=== PATIENT | female | born 1955 | race Caucasian/White ===

== ENCOUNTER → 2017-08-18 | Outpatient (CLI) | payer OTHER ==
[~2017-08-18] MED LIST: ACID REDUCER 1150 MG PO; ALBU90OI INH; ALLO100 PO; ASPI325; BENZ100A PO; CHOL10002 PO; CODGUAEL PO; CRUTCH USE; CYCL10 PO; Ceftin500 MG PO; Crutch1 EACH MISC; DIAZ2 PO; DOXY100 PO; GABA300 PO; HYDACE10B PO; HYDACE5 PO; HYDMOR2 PO; Ibuprofen Ib200 MG PO; LEVO750 PO; LEVSOD50 PO; LIDO700A20 TOP; LORA1 PO; MECL25 PO; METCAR500 PO; Miralax17 GM PO; NAPR500 PO; NAPR500EC PO; NAPR550 PO; Norco 5-325 Ta1 EACH PO; ONDA4ODT MM; ONDA8 PO; OXYACE5T PO; Omeprazole20 M1 PO; PENVK500 PO; PRAV20 PO; PRED20 PO; PROM25 PO; PROM25S PR; Percocet 5-3251 EACH PO; Prednisone20 MG PO; RANI150 PO; RXOXYACE PO; RXPENVK250 PO; TRAZ100 PO; ZOLP10 PO; Zofran Odt4 MG SL; Zofran4 MG PO
[2017-08-20 12:54] LABS: HPV Genotype 16 Not Detected (NOTDET); HPV Genotype 18 Not Detected (NOTDET)
[2017-08-31 09:15] LABS: HPV High Risk Other Not Detected (NOTDET)
== END ==
LOC: LAB 17:58
PROVIDERS: Nurse Practitioner Family
DX: Z12.4 Encounter for screening for malignant neoplasm of cervix (principal)
CPT/HCPCS: 87624; G0145

== ENCOUNTER 2017-11-10 11:12 | Emergency (ER) | payer OTHER ==
[~2017-11-10] VITALS: Ht 154.9 cm; Wt 69.0 kg
[~2017-11-10 11:12] MED LIST changes: -ALLO100 PO; -CHOL10002 PO; -CYCL10 PO; -Crutch1 EACH MISC; -GABA300 PO; -LEVO750 PO; -LEVSOD50 PO; -LIDO700A20 TOP; -ONDA4ODT MM; -Omeprazole20 M1 PO; -PRAV20 PO
[2017-11-10] MEDS ORDERED: Crutch1 EACH MISC (12:43)
[2017-11-10] MEDS ORDERED: Percocet 5-3251 EACH PO (12:43)
[2017-11-10] MEDS ORDERED: ONDA4ODT MM (12:43)
== END 2017-11-10 13:00 | disposition home or self-care (01) ==
LOC: ER 11:12
DX: S92.355A Nondisplaced fracture of fifth metatarsal bone, left foot, initial encounter for closed fracture (principal); X50.9XXA Other and unspecified overexertion or strenuous movements or postures, initial encounter; Z88.0 Allergy status to penicillin; Z88.5 Allergy status to narcotic agent; Z79.899 Other long term (current) drug therapy; F17.210 Nicotine dependence, cigarettes, uncomplicated
CPT/HCPCS: 29515; 73610; 73630; 99283

== ENCOUNTER 2018-03-01 14:35 | Emergency (ER) | payer OTHER ==
[~2018-03-01] VITALS: Ht 154.9 cm; Wt 70.3 kg
[~2018-03-01 14:35] MED LIST changes: +Crutch1 EACH MISC; +ONDA4ODT MM
[2018-03-01] MEDS ORDERED: NAPR500 PO (15:10)
[2018-03-01] MEDS ORDERED: GABA300 PO (15:10)
[2018-03-01] MEDS ORDERED: ALLO100 PO (15:11)
[2018-03-01] MEDS ORDERED: PRAV20 PO (15:11)
[2018-03-01] MEDS ORDERED: CHOL10002 PO (15:11)
[2018-03-01] MEDS ORDERED: LEVSOD50 PO (15:13)
[2018-03-01] MEDS ORDERED: CYCL10 PO (15:14)
[2018-03-01] MEDS ORDERED: Omeprazole20 M1 PO (15:14)
[2018-03-01] MEDS ORDERED: LIDO700A20 TOP (15:20)
== END 2018-03-01 15:45 | disposition home or self-care (01) ==
LOC: ER 14:35
DX: M54.2 Cervicalgia (principal); F17.200 Nicotine dependence, unspecified, uncomplicated; Z88.0 Allergy status to penicillin; Z88.5 Allergy status to narcotic agent; Z79.899 Other long term (current) drug therapy; Z79.51 Long term (current) use of inhaled steroids
CPT/HCPCS: 99283

== ENCOUNTER 2018-11-15 07:17 | Emergency (ER) | payer OTHER, MEDICARE ==
[~2018-11-15] VITALS: Ht 152.4 cm; Wt 78.0 kg
[~2018-11-15 07:17] MED LIST changes: +ALLO100 PO; +CHOL10002 PO; +CYCL10 PO; +GABA300 PO; +LEVO750 PO; +LEVSOD50 PO; +LIDO700A20 TOP; +Omeprazole20 M1 PO; +PRAV20 PO
[2018-11-15] MEDS ORDERED: CYCL10 PO (09:54)
[2018-11-15] MEDS ORDERED: Percocet 5-3251 EACH PO (09:54)
== END 2018-11-15 10:22 | disposition home or self-care (01) ==
LOC: ER 07:17
DX: M54.5 Low back pain (principal); Z88.0 Allergy status to penicillin; Z88.5 Allergy status to narcotic agent; Z79.899 Other long term (current) drug therapy; F17.200 Nicotine dependence, unspecified, uncomplicated
CPT/HCPCS: 72100; 99283-25; A9270-GY

== ENCOUNTER 2018-11-27 01:19 | Emergency (ER) | payer OTHER, MEDICARE ==
[~2018-11-27] VITALS: Ht 152.4 cm; Wt 78.0 kg
== END 2018-11-27 04:52 | disposition home or self-care (01) ==
LOC: ER 01:19
DX: S32.029D Unspecified fracture of second lumbar vertebra, subsequent encounter for fracture with routine healing (principal); W19.XXXD Unspecified fall, subsequent encounter; Z88.0 Allergy status to penicillin; Z88.5 Allergy status to narcotic agent; Z79.899 Other long term (current) drug therapy; F17.200 Nicotine dependence, unspecified, uncomplicated
CPT/HCPCS: 99283; A9270

== ENCOUNTER 2019-06-21 21:36 | Emergency (ER) | payer MEDICARE, OTHER ==
[~2019-06-21] VITALS: Ht 154.9 cm; Wt 78.9 kg
[2019-06-21] MEDS ORDERED: Zithromax250 MG PO (22:23)
[2019-06-21] MEDS ORDERED: Flonase 0.05% N16 GM (22:23)
== END 2019-06-21 22:51 | disposition home or self-care (01) ==
LOC: ER 21:36
DX: G44.209 Tension-type headache, unspecified, not intractable (principal); J32.9 Chronic sinusitis, unspecified; Z88.0 Allergy status to penicillin; Z88.5 Allergy status to narcotic agent; Z79.899 Other long term (current) drug therapy; Z79.51 Long term (current) use of inhaled steroids; Z87.891 Personal history of nicotine dependence
CPT/HCPCS: 96372; 99283-25; J1885; Q0164

== ENCOUNTER 2019-07-06 10:32 | Emergency (ER) | payer MEDICARE, OTHER ==
[~2019-07-06] VITALS: Ht 154.9 cm; Wt 80.7 kg
[~2019-07-06 10:32] MED LIST changes: +Flonase 0.05% N16 GM; +Zithromax250 MG PO
[2019-07-06 11:38] LABS: BASOPHILS ABSOLUTE AUTO 0.06 K/mm3 (0.00-0.23); BASOPHILS PERCENT AUTO 1 % (0-2); EOSINOPHILS ABSOLUTE AUTO 0.15 K/mm3 (0.00-0.68); EOSINOPHILS PERCENT AUTO 2 % (0-6); Hematocrit 43.8 % (33.0-51.0); Hemoglobin 14.5 g/dL (11.5-16.0); IMMATURE GRAN ABSOLUTE AUTO 0.06 K/mm3 (0.00-0.10); IMMATURE GRAN PERCENT AUTO 1 % (0-1); LYMPHOCYTES ABSOLUTE AUTO 2.11 K/mm3 (0.84-5.20); LYMPHOCYTES PERCENT AUTO 24 % (21-46); MONOCYTES ABSOLUTE AUTO 0.73 K/mm3 (0.16-1.47); MONOCYTES PERCENT AUTO 8 % (4-13); Mean Corpuscular HGB 28.1 pg (26.0-34.0); Mean Corpuscular HGB Conc 33.1 g/dL (31.5-36.5); Mean Corpuscular Volume 85 fL (80-100); Mean Platelet Volume 9.3 fL (9.1-12.4); NEUTROPHILS ABSOLUTE AUTO 5.66 K/mm3 (1.96-9.15); NEUTROPHILS PERCENT AUTO 65 % (41-73); Platelet Count 255 K/mm3 (150-400); RDW Coefficient Variation 13.5 % (11.7-14.2); RDW Standard Deviation 42.2 fL (35.1-46.3); Red Blood Cell Count 5.16 M/mm3 (3.80-5.20); White Blood Cell Count 8.77 K/mm3 (4.00-11.30)
[2019-07-06 11:59] LABS: Alanine Aminotransfer (ALT/SGP 61 U/L (12-78); Albumin, Blood 3.5 g/dL (3.4-5.0); Albumin/Globulin Ratio 0.9 (0.8-1.8); Anion Gap 7 mmol/L (6-16); Aspartate Aminotrans (AST/SGOT 58 U/L (12-37); Bilirubin, Total 0.4 mg/dL (0.1-1.0); Blood Urea Nitrogen 10 mg/dL (8-24); Bun/Creatinine Ratio 17.9 (12.0-20.0); CO2, Blood 28 mmol/L (21-32); Calcium, Blood 8.6 mg/dL (8.5-10.1); Chloride, Blood 103 mmol/L (98-108); Creatinine, Blood 0.56 mg/dL (0.40-1.00); Globulin, Blood 4.1 g/dL (2.2-4.0); Glomerular Filtration Rate >60 (60-); Glucose, Blood 107 mg/dL (70-99); Potassium, Blood 3.3 mmol/L (3.5-5.5); Sodium, Blood 138 mmol/L (136-145); Total Protein, Blood 7.6 g/dL (6.4-8.2)
[2019-07-06 12:01] LABS: Alk Phos 142 U/L (50-136); Troponin I <0.015 ng/mL (0.000-0.040)
[2019-07-06] MEDS ORDERED: Zithromax250 MG PO (13:35)
[2019-07-06] MEDS ORDERED: BENZ100A PO (13:35)
[2019-07-06] MEDS ORDERED: Prednisone20 MG PO (13:35)
[2019-07-06] MEDS ORDERED: ALBU90OI INH (13:35)
== END 2019-07-06 14:13 | disposition home or self-care (01) ==
LOC: ER 10:32
PROVIDERS: Emergency Medicine
DX: J40 Bronchitis, not specified as acute or chronic (principal); Z88.0 Allergy status to penicillin; Z88.5 Allergy status to narcotic agent; Z79.899 Other long term (current) drug therapy; M54.9 Dorsalgia, unspecified; G89.29 Other chronic pain; Z87.891 Personal history of nicotine dependence
CPT/HCPCS: 36415; 71046; 80053; 84484; 85025; 93005; 93010; 99284-25; J7512

== ENCOUNTER 2020-01-01 18:24 | Observation (INO) | payer MEDICARE, OTHER ==
[~2020-01-01] VITALS: Ht 157.5 cm; Wt 81.4 kg
[2020-01-01] MEDS ORDERED: EUTHYROX25 MC1 PO (18:46)
[2020-01-01] MEDS ORDERED: NEURONTIN300 MG PO (18:46)
[2020-01-01] MEDS ORDERED: HYDHCL25 PO (18:47)
[2020-01-01] MEDS ORDERED: CYCL10 PO (18:49)
[2020-01-01 18:56] LABS: BASOPHILS ABSOLUTE AUTO 0.13 K/mm3 (0.00-0.23); BASOPHILS PERCENT AUTO 1 % (0-2); EOSINOPHILS PERCENT AUTO 2 % (0-6); Hematocrit 38.8 % (33.0-51.0); Hemoglobin 12.7 g/dL (11.5-16.0); IMMATURE GRAN ABSOLUTE AUTO 0.09 K/mm3 (0.00-0.10); IMMATURE GRAN PERCENT AUTO 1 % (0-1); LYMPHOCYTES PERCENT AUTO 27 % (21-46); MONOCYTES ABSOLUTE AUTO 0.79 K/mm3 (0.16-1.47); MONOCYTES PERCENT AUTO 6 % (4-13); Mean Corpuscular HGB 28.6 pg (26.0-34.0); Mean Corpuscular HGB Conc 32.7 g/dL (31.5-36.5); Mean Corpuscular Volume 87 fL (80-100); Mean Platelet Volume 9.7 fL (9.1-12.4); NEUTROPHILS ABSOLUTE AUTO 9.15 K/mm3 (1.96-9.15); NEUTROPHILS PERCENT AUTO 64 % (41-73); Platelet Count 257 K/mm3 (150-400); RDW Coefficient Variation 14.5 % (11.7-14.2); Red Blood Cell Count 4.44 M/mm3 (3.80-5.20); White Blood Cell Count 14.26 K/mm3 (4.00-11.30)
[2020-01-01 19:07] LABS: Alanine Aminotransfer (ALT/SGP 46 U/L (12-78); Albumin, Blood 3.3 g/dL (3.4-5.0); Albumin/Globulin Ratio 0.8 (0.8-1.8); Alk Phos 132 U/L (50-136); Anion Gap 9 mmol/L (6-16); Aspartate Aminotrans (AST/SGOT 34 U/L (12-37); Bilirubin, Total 0.4 mg/dL (0.1-1.0); Blood Urea Nitrogen 10 mg/dL (8-24); Bun/Creatinine Ratio 18.5 (12.0-20.0); CO2, Blood 22 mmol/L (21-32); Calcium, Blood 8.8 mg/dL (8.5-10.1); Chloride, Blood 108 mmol/L (98-108); Creatinine, Blood 0.54 mg/dL (0.40-1.00); Ethanol (Alcohol), Blood, Med <3 mg/dL; Globulin, Blood 3.9 g/dL (2.2-4.0); Glomerular Filtration Rate >60 (60-); Glucose, Blood 171 mg/dL (70-99); Potassium, Blood 3.4 mmol/L (3.5-5.5); Salicylate <1.7 mg/dL (2.8-20.0); Sodium, Blood 139 mmol/L (136-145); Total Protein, Blood 7.2 g/dL (6.4-8.2)
[2020-01-01 19:19] LABS: Acetaminophen, Random <2.0 ug/mL (10.0-30.0)
[2020-01-01 21:07] LABS: Source, Urine Catheter
[2020-01-01 21:11] LABS: Appearance, Urine Hazy (Clear); Bilirubin, Urine Neg (Neg); Blood, Urine 1+ (Neg); Color, Urine Amber (P-Yellow); Glucose Qualitative, Urine Neg (Neg); Ketones, Urine Neg (Neg); Leukocyte Esterase, Urine 2+ (Neg); Nitrite, Urine Pos (Neg); Protein, Urine Neg (Neg); Specific Gravity, Urine 1.025 (1.003-1.022); Urobilinogen, Urine 1+ (Normal)
[2020-01-01 21:21] LABS: Bacteria Many /hpf; Red Blood Cells, Urine 0-2 /hpf (0-2); Squamous Epithelial Cells Few /hpf (Few)
[2020-01-01 21:22] LABS: U Amphetamine Screen DETECTED; U Barbituate Screen Not Detected; U Benzodiazapine Screen DETECTED; U Buprenorphine Screen Not Detected; U Cannabinoids Screen Not Detected; U Cocaine Screen Not Detected; U Methadone Screen Not Detected; U Methamphetamine Screen DETECTED; U Opiates Screen Not Detected; U Oxycodone Screen Not Detected; U Phencyclidine Screen Not Detected; U Propoxyphene Screen Not Detected
--- NOTE | 2020-01-01 23:03 | NUR ---
PT TO ICU [facility] WITH ED RN AND TECH @ 3196, PT ALERT AND ORIENTED BUT WITH SLURRED SPEECH AND FLIGHT OF IDEAS AT TIMES. VSS, PT STANDS UP INDEPENDENTLY BUT IS SOMEWHAT UNSTEADY ON HER FEET AND REPORTS PAIN TO HER LOWER BACK WHICH IS CHRONIC FOR HER. O2 SATURATIONS> 95% ON RA, MONITOR SHOWS SINUS RHYTHM WITH HR 60'S-70'S, FOLLOW UP EKG ORDERED FOR 0030 PER RECOMMENDATION FROM POISON CONTROL. PT IS FIDGETY IN BED BUT FOLLOWS DIRECTIONS, PT IS COOPERATIVE WITH NURSING STAFF. INFORMED PT OF MONITORING VIA CAMERA IN ROOM, PT VERBALIZES UNDERSTANDING OF NEED R/T SAFETY. PT TEARFUL AT TIMES, REPORTS HER MOTHER IN OUR FACILITY IN ICU 3 APPROX 7 YEARS AGO. PT REPORTS NOT HAVING FAMILY IN THE AREA BUT A BROTHER WILL BE MOVING BACK TO [place] FROM [place] SOON, STS FAMILY WILL NOT VISIT HER OFTEN BECAUSE THEY DO NOT LIKE HER BOYFRIEND BECAUSE HE IS "DIFFERENT". PT UNABLE TO REPORT ALL MEDICATIONS THAT SHE TOOK THIS EVENING, BUT STS SHE TOOK AT LEAST 4 VALIUM. PT LOOKS FORWARD TO SPEAKING WITH PSYCHIATRIST TOMORROW. PT WITH GOOD APPETITE, SWALLOWS PILLS WHOLE WITH WATER, CALL LIGHT WITHIN REACH, VERIFIED VIDEO MONITORING WITH [employer] TECH.
--- NOTE | 2020-01-02 00:23 | NUR ---
MIDSHIFT ASSESSMENT PT REPORTS FEELING NAUSEOUS, EMESIS BAG AND SALTINE CRACKERS PROVIDED, NO VOMITING AT THIS TIME. PT REPORTS DIFFICULTY FALLING ASLEEP, ASSISTED WITH TURNING ON TELEVISION, EKG COMPLETED AND PT CURRENTLY SLEEPING.
--- NOTE | 2020-01-02 01:56 | NUR ---
POISON CONTROL SPOKE WITH RN [employer] SPECIALTY SERVICES MANAGER FROM POISON CONTROL, UPDATED ON PTS STATUS, VSS, REPEAT EKG, AND TOX SCREEN RESULTS. NO NEW RECOMMENDATIONS AT THIS TIME, POISON CONTROL REMAINS AVAILABLE FOR CONSULT IF DESIRED BY PROVIDER.
[2020-01-02 03:44] LABS: BASOPHILS ABSOLUTE AUTO 0.08 K/mm3 (0.00-0.23); BASOPHILS PERCENT AUTO 1 % (0-2); EOSINOPHILS ABSOLUTE AUTO 0.29 K/mm3 (0.00-0.68); EOSINOPHILS PERCENT AUTO 3 % (0-6); Hemoglobin 12.5 g/dL (11.5-16.0); IMMATURE GRAN ABSOLUTE AUTO 0.05 K/mm3 (0.00-0.10); IMMATURE GRAN PERCENT AUTO 1 % (0-1); LYMPHOCYTES ABSOLUTE AUTO 3.57 K/mm3 (0.84-5.20); LYMPHOCYTES PERCENT AUTO 35 % (21-46); MONOCYTES PERCENT AUTO 6 % (4-13); Mean Corpuscular HGB 28.2 pg (26.0-34.0); Mean Corpuscular HGB Conc 32.1 g/dL (31.5-36.5); Mean Corpuscular Volume 88 fL (80-100); Mean Platelet Volume 9.7 fL (9.1-12.4); NEUTROPHILS ABSOLUTE AUTO 5.66 K/mm3 (1.96-9.15); NEUTROPHILS PERCENT AUTO 55 % (41-73); Platelet Count 220 K/mm3 (150-400); RDW Coefficient Variation 14.5 % (11.7-14.2); RDW Standard Deviation 46.8 fL (35.1-46.3); Red Blood Cell Count 4.43 M/mm3 (3.80-5.20); White Blood Cell Count 10.25 K/mm3 (4.00-11.30)
[2020-01-02 04:13] LABS: Alanine Aminotransfer (ALT/SGP 41 U/L (12-78); Albumin, Blood 3.1 g/dL (3.4-5.0); Albumin/Globulin Ratio 0.9 (0.8-1.8); Alk Phos 123 U/L (50-136); Anion Gap 4 mmol/L (6-16); Aspartate Aminotrans (AST/SGOT 27 U/L (12-37); Bilirubin, Total 0.2 mg/dL (0.1-1.0); Blood Urea Nitrogen 12 mg/dL (8-24); CO2, Blood 30 mmol/L (21-32); Calcium, Blood 8.9 mg/dL (8.5-10.1); Chloride, Blood 108 mmol/L (98-108); Creatinine, Blood 0.63 mg/dL (0.40-1.00); Globulin, Blood 3.4 g/dL (2.2-4.0); Glomerular Filtration Rate >60 (60-); Glucose, Blood 117 mg/dL (70-99); Potassium, Blood 3.4 mmol/L (3.5-5.5); Sodium, Blood 142 mmol/L (136-145); Total Protein, Blood 6.5 g/dL (6.4-8.2)
--- NOTE | 2020-01-02 05:39 | NUR ---
SHIFT SUMMARY NO ACUTE CHANGES THIS SHIFT, VITAL SIGNS REMAIN STABLE, REPEAT EKG COMPLETED AND IN PTS CHART. PT ABLE TO COMMUNICATE NEEDS BUT DOES NOT USE CALL LIGHT APPROPRIATELY DESPITE EDUCATION ON USE. PT REPORTING DISCOMFORT TO ARM R/T BLOOD PRESSURE CUFF, PT WITH GOOD PO INTAKE AND FREQUENT REQUESTS FOR FOOD/SNACKS, FOOD REQUEST FOR OATMEAL PLACED TO [place] PER PTS REQUEST. PT ANXIOUS TO SPEAK WITH DR VAUGHN TODAY AND REPORTS DESIRE TO GO HOME. PT ALSO REPORTS PAIN TO THE R EAR AND IS CONCERNED ABOUT AN EAR INFECTION, LET PT KNOW I WOULD PASS ON THIS INFORMATION TO HER DAY SHIFT NURSE BUT THAT SHE SHOULD ALSO NOTIFY HER PROVIDER WHEN ROUNDED ON TODAY. PT CONTINUES TO DENY SI SINCE ADMISSION. CALL LIGHT WITHIN REACH, PT CURRENTLY SITTING UP AND WATCHING TELEVISION.
--- NOTE | 2020-01-02 08:00 | NUR ---
INITIAL ASSESSMENT PATIENT LYING CALMLY IN BED. ALERT AND ORIENTED X 4, AFEBRILE. PATIENT DENIES SI. PATIENT FORGETFUL OF LIMITATIONS. DENIES PAIN. SATTING 90% AND GREATER ON RA. SR, HR IN THE 70S. BP STABLE. PATIENT HAVING DIARRHEA. PATIENT STATES THAT SHE HAS CHRONIC DIARRHEA. VOIDING DARK YELLOW URINE. GOOD APPETITE. SKIN APPEARS WNL. IV FLUSHED AND SALINE LOCKED. MIDDLEKAUFF TO SEE PATIENT TODAY. BED LOW, CALL LIGHT IN REACH. WILL CONTINUE TO MONITOR. CAMERA MONITOR ON PATIENT.
--- NOTE | 2020-01-02 10:06 | NUR ---
Safety Plan jarek. Interviewed 01-02-20 [id number] [phone]. Patient given national suicide hotline magnet and reviewed local crisis number. Patient pleasant and talkative. She was "overwhelmed" with "everything" yesterday and took amany of her medications as an OD. She rel;ays she went outside and started screaming for help, and someone "must have called an ambulance". 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 "I loved that job". She relayed she is having physical problems walking and pain on her left side. She is not able to keep her home clean like she used to. She feels ignored by her boyfriend of 30 years, and tried to talk to him about how she does not feel that he hugs her anymore. They sleep seoarately because she has restless leg syndrome and was waking him. He is self employed and "works all the time". She reports negatie self talk of "fat, ugly, unloveable". Brief intervention on positive self talk given. Patient was able to smile, stated what she did was "stupid". She spoke highly of her boyfriend, loves him, and he "has a good eart". Patient agrees to Outpatient counseling if it is arranged. She uses meth for pain.and smokes it. Reports he quit 3 days ago, as she needs surgery on her neck. Quit cigarettes 1 year ago--"so I can quit meth on my own". Children removed from her shortly after 30 years ago--daughter has found her and they are communicating. Was heavy beer drinker with her boyfriend , but reports both have decreased amount to 1-2 beers per day. Patient agrees to move meds to harder to reach area to challenge the impulsivess she demonstrated with OD. No firearms in home.
--- NOTE | 2020-01-02 11:33 | NUR ---
SPOKE TO DR. WHITMORE CONCERNING PATIENT HAVING 11 BEAT RUN OF [employer] AT 1052. ASYMPTOMATIC. INFORMED OF PATIENT'S URINE LAB RESULTS. ORDER FOR ANTIBIOTIC OBTAINED. PATIENT RETURNED BACK TO TELE STATUS.
--- NOTE | 2020-01-02 12:00 | NUR ---
PATIENT RESTING QUIETLY IN BED, EATING LUNCH. PATIENT REMAINS ALERT AND ORIENTED X 4. PATIENT CONTINUES TO DENY SI. HR 70S TO 80S. PATIENT HAD 11 BEAT RUN OF [facility] MID MORNING; ASYMPTOMATIC. NO OTHER CHANGES TO NOTE ON AT THIS TIME. WILL CONTINUE TO MONITOR.
--- NOTE | 2020-01-02 13:28 | NUR ---
DR. GALICIA IN PATIENT ROOM.
[2020-01-02] MEDS ORDERED: CEPH500 PO (14:46)
--- NOTE | 2020-01-02 16:35 | NUR ---
IV DC'D. SIGNIFICANT OTHER, DEVIN, HERE TO SHIP SURVEYOR PATIENT. DISCHARGE COMPLETE. ALL BELONGINGS TAKEN HOME WITH PATIENT.
--- NOTE | 2020-01-05 18:05 | NUR ---
ORDER RECEIVED BY DR. WHITMORE TO [place] TELE ON 01/02/20 AT 0916, TELE ON 01/02/20 AT 1131, AND KEFLEX ON 01/02/20 AT 1131- ORDERS UPDATED AT THIS TIME TO CORRECT PROVIDER.
== END 2020-01-02 16:45 | disposition home or self-care (01) ==
LOC: ER 18:24 → ICUE 18:25 → ICUW 18:25 → ICUE 21:24
PROVIDERS: Emergency Medicine; ADMIT Internal Medicine
DX: T43.212A Poisoning by selective serotonin and norepinephrine reuptake inhibitors, intentional self-harm, initial encounter (principal); F32.9 Major depressive disorder, single episode, unspecified; F15.10 Other stimulant abuse, uncomplicated; N39.0 Urinary tract infection, site not specified; E87.6 Hypokalemia; E78.5 Hyperlipidemia, unspecified; Z79.899 Other long term (current) drug therapy; Z87.891 Personal history of nicotine dependence; Z88.5 Allergy status to narcotic agent; Z88.0 Allergy status to penicillin
CPT/HCPCS: 36415; 51700; 71045; 80053; 81001; 81025; 84443; 85025; 87077; 87086; 87186; 93005; 93010; 99285-25; A9270; G0378; G0480

== ENCOUNTER 2020-02-17 21:36 | Emergency (ER) | payer MEDICARE, OTHER ==
[~2020-02-17] VITALS: Ht 152.4 cm; Wt 78.0 kg
[~2020-02-17 21:36] MED LIST changes: +CEPH500 PO; +EUTHYROX25 MC1 PO; +HYDHCL25 PO; +NEURONTIN300 MG PO
== END 2020-02-18 00:18 | disposition home or self-care (01) ==
LOC: ER 21:36
DX: G89.29 Other chronic pain (principal); M54.5 Low back pain; Z88.5 Allergy status to narcotic agent; Z88.0 Allergy status to penicillin; E78.5 Hyperlipidemia, unspecified; F32.9 Major depressive disorder, single episode, unspecified; Z79.899 Other long term (current) drug therapy
CPT/HCPCS: 96372; 99283-25; J1885

== ENCOUNTER 2020-04-16 10:12 | Inpatient (IN) | payer MEDICARE, OTHER ==
[~2020-04-16] VITALS: Ht 152.4 cm; Wt 80.6 kg
[2020-04-16 10:41] LABS: BASOPHILS ABSOLUTE AUTO 0.14 K/mm3 (0.00-0.23); BASOPHILS PERCENT AUTO 1 % (0-2); EOSINOPHILS ABSOLUTE AUTO 0.01 K/mm3 (0.00-0.68); EOSINOPHILS PERCENT AUTO 0 % (0-6); Hematocrit 42.3 % (33.0-51.0); Hemoglobin 13.9 g/dL (11.5-16.0); IMMATURE GRAN ABSOLUTE AUTO 0.22 K/mm3 (0.00-0.10); IMMATURE GRAN PERCENT AUTO 1 % (0-1); LYMPHOCYTES ABSOLUTE AUTO 2.27 K/mm3 (0.84-5.20); LYMPHOCYTES PERCENT AUTO 10 % (21-46); MONOCYTES PERCENT AUTO 4 % (4-13); Mean Corpuscular HGB 28.1 pg (26.0-34.0); Mean Corpuscular HGB Conc 32.9 g/dL (31.5-36.5); Mean Corpuscular Volume 86 fL (80-100); Mean Platelet Volume 9.6 fL (9.1-12.4); NEUTROPHILS ABSOLUTE AUTO 19.67 K/mm3 (1.96-9.15); NEUTROPHILS PERCENT AUTO 85 % (41-73); Platelet Count 258 K/mm3 (150-400); RDW Coefficient Variation 13.9 % (11.7-14.2); Red Blood Cell Count 4.94 M/mm3 (3.80-5.20); White Blood Cell Count 23.11 K/mm3 (4.00-11.30)
[2020-04-16 11:00] LABS: Alanine Aminotransfer (ALT/SGP 43 U/L (12-78); Albumin, Blood 3.3 g/dL (3.4-5.0); Albumin/Globulin Ratio 0.9 (0.8-1.8); Alk Phos 115 U/L (50-136); Anion Gap 9 mmol/L (6-16); Aspartate Aminotrans (AST/SGOT 39 U/L (12-37); Bilirubin, Total 1.1 mg/dL (0.1-1.0); Blood Urea Nitrogen 10 mg/dL (8-24); Bun/Creatinine Ratio 17.1 (12.0-20.0); CO2, Blood 28 mmol/L (21-32); Calcium, Blood 8.4 mg/dL (8.5-10.1); Chloride, Blood 97 mmol/L (98-108); Creatinine, Blood 0.59 mg/dL (0.40-1.00); Globulin, Blood 3.8 g/dL (2.2-4.0); Glomerular Filtration Rate >60 (60-); Glucose, Blood 113 mg/dL (70-99); Potassium, Blood 3.1 mmol/L (3.5-5.5); Sodium, Blood 134 mmol/L (136-145); Total Protein, Blood 7.1 g/dL (6.4-8.2); Troponin I <0.015 ng/mL (0.000-0.040)
[2020-04-16 11:35] LABS: Magnesium, Blood 1.2 mg/dL (1.6-2.4)
[2020-04-16 12:12] LABS: Source, Urine Catheter
[2020-04-16] MEDS ORDERED: NEURONTIN300 MG PO (12:20)
[2020-04-16 12:41] LABS: Appearance, Urine Hazy (Clear); Bacteria Not Seen /hpf; Bilirubin, Urine Neg (Neg); Blood, Urine 1+ (Neg); Color, Urine Yellow (P-Yellow); Glucose Qualitative, Urine Neg (Neg); Ketones, Urine Neg (Neg); Leukocyte Esterase, Urine Neg (Neg); Nitrite, Urine Neg (Neg); Protein, Urine Neg (Neg); Red Blood Cells, Urine 0-2 /hpf (0-2); Squamous Epithelial Cells Rare /hpf (Few); Urobilinogen, Urine NORM (Normal); White Blood Cells, Urine Not Seen /hpf (0-5)
[2020-04-16 14:33] LABS: U Methamphetamine Screen DETECTED; U Opiates Screen DETECTED
[2020-04-16 14:34] LABS: U Amphetamine Screen DETECTED; U Barbituate Screen Not Detected; U Benzodiazapine Screen Not Detected; U Buprenorphine Screen Not Detected; U Cannabinoids Screen Not Detected; U Cocaine Screen Not Detected; U Methadone Screen Not Detected; U Oxycodone Screen DETECTED; U Phencyclidine Screen Not Detected; U Propoxyphene Screen Not Detected
--- NOTE | 2020-04-16 19:37 | NUR ---
SHIFT SUMMARY: ASSUMED CARE OF PATIENT UPON HER ARRIVAL FROM ED AT 1701. SHE IS A&O X 3, BUT IS SEVERELY AGITATED,KEEPS CALLING OUT FOR HER "MAMA", THRASHING ABOUT IN BED. TACHYPNEIC RR 30, MANUFACTURING ADVISOR COUGH, O2 @ 2 L/MIN NC WITH SAT 90-93%. ON TELEMETRY, SINUS TACH 110'S. LACTIC ACID 3.6 IN ED, REFLEX LAB 3.9; REPORTED TO DR. FAJARDO, WHO ORDERED A CHANGE IN IVF. MEDICATED PATIENT WITH ATIVAN 1 MG IV TO CALM HER AND SLOW HER BREATHING A BIT, WHICH HELPED. DRINKS ETOH ABOUT 3X PER WEEK PER SO, LAST DRINK "A COUPLE OF DAYS AGO." NO PLAN TO TRANSFER TO HIGHER LEVEL OF CARE AT THIS TIME.
[2020-04-16] MEDS ORDERED: ALBU90OI INH (19:56)
--- NOTE | 2020-04-16 23:39 | NUR ---
2028 PT AAO X 1-2, CONFUSION, ANXIETY, ATTEMPTING TO GET OUT OF BED, CALLING "MAMMA, MAMMA". FAMILY REPORTS HX OF CHRONIC FALLS AT HOME. PT KEEPS PULLING O2 AND TELE OFF. PT UNABLE TO ANSWER COHERANTLY R/T PAIN, NAUSEA, SOB. ON 2L AT 93%, ON RA SHE IS 90%. WILL LEAVE OFF O2 FOR NOW. WILL ADMINISTER ATIVAN AND WHEN PT HAS CALMED ATTEMPT TO PLACE TELE BACK ON. WILL PLACE PT IN RASHIDA VEST FOR THEIR SAFETY R/T HIGH FALL RISK, CONFUSION, AND HX OF CHRONIC FALLS AT HOME. BED ALARM IS ALREADY ON. WILL CONT TO MONITOR PT. CALL LIGHT IS IN REACH.
--- NOTE | 2020-04-16 23:42 | NUR ---
PT CONTINUES TO PULL TELE OFF. WILL KEEP ATTEMPTING TO PLACE IT BACK ON AND KEEP IT ON. TELE MONITOR AWARE OF PT'S CONFUSION AND SITUATION. WILL CONTINUE TO MONITOR PT. RASHIDA RESTRAINT IS STILL ON. BED ALARM IS ON. CALL LIGHT IS IN REACH.
--- NOTE | 2020-04-17 05:02 | NUR ---
0200 PT LYING IN BED, EYES CLOSED, APPEARS TO BE RESTING. BREATHING IS EVEN, UNLABORED. RASHIDA IS ON. TELE IS ON. NO APPARENT SIGNS OF DISTRESS. BED ALARM IS ON. CALL LIGHT IS IN REACH.
--- NOTE | 2020-04-17 05:03 | NUR ---
0400 PT HAS PULLED HER TELE OFF A COUPLE OF MORE TIMES, HAD AN EPISODE OF INCONTINENT BM. NOW LYING IN BED, EYES CLOSED, APPEARS TO BE RESTING. BREATHING IS EVEN, UNLABORED. NO APPARENT SIGNS OF DISTRESS. CALL LIGHT IS IN REACH. BED ALARM IS ON. TELE IS BACK ON.
[2020-04-17 05:04] LABS: Hematocrit 38.3 % (33.0-51.0); Hemoglobin 12.2 g/dL (11.5-16.0); Mean Corpuscular HGB 27.5 pg (26.0-34.0); Mean Corpuscular HGB Conc 31.9 g/dL (31.5-36.5); Mean Corpuscular Volume 87 fL (80-100); Mean Platelet Volume 9.9 fL (9.1-12.4); Platelet Count 196 K/mm3 (150-400); RDW Coefficient Variation 14.5 % (11.7-14.2); RDW Standard Deviation 46.3 fL (35.1-46.3); Red Blood Cell Count 4.43 M/mm3 (3.80-5.20); White Blood Cell Count 16.79 K/mm3 (4.00-11.30)
--- NOTE | 2020-04-17 05:04 | NUR ---
PT IS AAO X 1, ON RA. TELE, PULLS TELE OFF REPEATEDLY. HAD BEEN INCONTINENT OF BM X 2. REYNAGA. TELE IS NSR. REFUSED SCD'S.
[2020-04-17 05:30] LABS: Alanine Aminotransfer (ALT/SGP 34 U/L (12-78); Albumin, Blood 2.4 g/dL (3.4-5.0); Albumin/Globulin Ratio 0.6 (0.8-1.8); Alk Phos 89 U/L (50-136); Anion Gap 7 mmol/L (6-16); Aspartate Aminotrans (AST/SGOT 31 U/L (12-37); Bilirubin, Total 0.9 mg/dL (0.1-1.0); Blood Urea Nitrogen 16 mg/dL (8-24); Bun/Creatinine Ratio 26.8 (12.0-20.0); CO2, Blood 25 mmol/L (21-32); Calcium, Blood 7.9 mg/dL (8.5-10.1); Chloride, Blood 104 mmol/L (98-108); Globulin, Blood 3.7 g/dL (2.2-4.0); Glomerular Filtration Rate >60 (60-); Glucose, Blood 90 mg/dL (70-99); Potassium, Blood 3.4 mmol/L (3.5-5.5); Sodium, Blood 136 mmol/L (136-145); Total Protein, Blood 6.1 g/dL (6.4-8.2)
[2020-04-17 05:43] LABS: BAND PERCENT MAN 29 % (0-8); BASOPHILS PERCENT MAN 0 % (0-2); EOSINOPHILS PERCENT MAN 0 % (0-6); LYMPHOCYTES ABSOLUTE MAN 0.83 K/mm3 (0.84-5.20); LYMPHOCYTES PERCENT MAN 5 % (21-46); MONOCYTES ABSOLUTE MAN 0.67 K/mm3 (0.16-1.47); MONOCYTES PERCENT MAN 4 % (4-13); NEUTROPHILS ABSOLUTE MAN 15.27 K/mm3 (1.96-9.15); SEG NEUTROPHILS PERCENT MAN 62 % (41-73); TOTAL CELLS COUNTED 100
--- NOTE | 2020-04-17 06:41 | NUR ---
PT REQUESTED AND RECIEVED SOME SIPS OF WATER, PT HAS WATER IN SIPPY CUP TO PREVENT SPILLS. NO OTHER APPARENT SIGNS OF DISTRESS. BED ALARM IS PRODUCTION CONTROL EXPERT LIGHT IS IN REACH. NO OTHER CHANGES THIS SHIFT.
--- NOTE | 2020-04-17 18:46 | NUR ---
SHIFT SUMMARY: RESTRAINTS D/C'D AT 1030. A&O X 3, MORE AWARE AND COHERENT THAN YESTERDAY. NO EVENTS ON TELEMETRY, SR 90-100'S. WEANED OFF O2, 92-94% ON RA. C/O R SIDE CHEST DISCOMFORT AND PAIN WHEN COUOGHING; MEDICATED WITH TYLENOL, BUT WANTS SOMETHING STRONGER BUT EDUCATED HER THAT BECAUSE OF HER ALTERED MENTATION ON ARRIVAL NO NARCOTICS WOULD BE ORDERED FOR HER. GOT UP TO CHAIR WITH OT, IN CHAIR FOR DINNER. AMBULATED SHORT DISTANCE WITH PHYSICAL THERAPY. GOT UPSET WHEN S.O. DIDN'T COME TO VISIT, CRYING, WHICH RESOLVED TONIGHT WHEN HE VISITED. WANTS TO GO HOME WITH HH.
--- NOTE | 2020-04-17 22:51 | NUR ---
Patient very anxious, talking loudly as if there is someone in the room. Has pulled out IV and has now excalated to yelling at her call light. Will contact MD to discuss
--- NOTE | 2020-04-18 02:47 | NUR ---
Patient continues to be very anxious and experiancing insomnia since HS. Patient has pulled out IV and removed Biox saturation monitor. She is still yelling out in room and asking where her is. She did allow this RN to attempt two IV's, but pulled her arm away each time she was poked. Wendy said "that's enough for now". Gave meds ordered by MD including PO Ativan and her 100mg dose of trazodone. Spoke with charge loader who noted that patient was 750 ml completed on his liter bag of saline, and was not scheduled for his rocephin until 1800. If patient excalates again, I will give po zyprexa
[2020-04-18 04:44] LABS: Hematocrit 36.4 % (33.0-51.0); Hemoglobin 11.7 g/dL (11.5-16.0); Mean Corpuscular HGB 27.9 pg (26.0-34.0); Mean Corpuscular HGB Conc 32.1 g/dL (31.5-36.5); Mean Corpuscular Volume 87 fL (80-100); Mean Platelet Volume 9.8 fL (9.1-12.4); Platelet Count 216 K/mm3 (150-400); RDW Coefficient Variation 14.6 % (11.7-14.2); RDW Standard Deviation 46.6 fL (35.1-46.3); White Blood Cell Count 19.13 K/mm3 (4.00-11.30)
[2020-04-18 05:14] LABS: Anion Gap 6 mmol/L (6-16); Blood Urea Nitrogen 12 mg/dL (8-24); Bun/Creatinine Ratio 24.6 (12.0-20.0); CO2, Blood 27 mmol/L (21-32); Calcium, Blood 8.6 mg/dL (8.5-10.1); Chloride, Blood 109 mmol/L (98-108); Creatinine, Blood 0.49 mg/dL (0.40-1.00); Glomerular Filtration Rate >60 (60-); Glucose, Blood 86 mg/dL (70-99); Potassium, Blood 3.1 mmol/L (3.5-5.5); Sodium, Blood 142 mmol/L (136-145)
[2020-04-18 05:18] LABS: BAND PERCENT MAN 7 % (0-8); BASOPHILS PERCENT MAN 0 % (0-2); EOSINOPHILS PERCENT MAN 0 % (0-6); LYMPHOCYTES % ATYPICAL MANUAL 1 % (0-0); LYMPHOCYTES ABSOLUTE MAN 3.06 K/mm3 (0.84-5.20); LYMPHOCYTES PERCENT MAN 15 % (21-46); MONOCYTES ABSOLUTE MAN 0.95 K/mm3 (0.16-1.47); MONOCYTES PERCENT MAN 5 % (4-13); NEUTROPHILS ABSOLUTE MAN 15.11 K/mm3 (1.96-9.15); SEG NEUTROPHILS PERCENT MAN 72 % (41-73); TOTAL CELLS COUNTED 100
--- NOTE | 2020-04-18 07:56 | NUR ---
CARE AID SUMMARY Patient awake all night calling out for her madhavibradley JR. She has refused a new IV start as well as wearing biox and nasal cannula. Tried to explain the circumstances of her pneumonia and our inability to treat it, and she was too preoccupied to receive instruction.
--- NOTE | 2020-04-18 16:37 | NUR ---
SHE HAS SLEPT MOST OF THE DAY. SHE DID EAT HER MEALS. SHE HAS A VISITOR X2 TODAY FOR SHORT VISITS. SHE DECLINED OT. HER MENTATION IS CONFUSED. HER LOC FLUCTUATES.
--- NOTE | 2020-04-18 17:04 | NUR ---
SHE GETS HER I.S. ONLY UP TO 1000. SHE JUST AMBULATED THE KURTZ WITH A WALKER AND CGA. JUHI AMATO.
--- NOTE | 2020-04-18 18:22 | NUR ---
SHE IS BACK IN BED AFTER A WALK AND SITTING IN THE CHAIR FOR DINNER. ARJUN WAS DC'D BEFORE DINNER. SHE HAS PULL UPS ON LIKE AT HOME FOR SOME MILD INCONTINENCE. SHE HAS A VISITOR. SHE IS MILDLY CONFUSED, LESS THAN LAST NIGHT OR FIRST THING THIS MORNING. NO FEVER. IV ANTIBIOTIC INFUSING.
[2020-04-19 05:37] LABS: BASOPHILS ABSOLUTE AUTO 0.09 K/mm3 (0.00-0.23); BASOPHILS PERCENT AUTO 1 % (0-2); EOSINOPHILS ABSOLUTE AUTO 0.36 K/mm3 (0.00-0.68); EOSINOPHILS PERCENT AUTO 3 % (0-6); Hematocrit 38.4 % (33.0-51.0); Hemoglobin 12.5 g/dL (11.5-16.0); IMMATURE GRAN ABSOLUTE AUTO 0.14 K/mm3 (0.00-0.10); IMMATURE GRAN PERCENT AUTO 1 % (0-1); LYMPHOCYTES ABSOLUTE AUTO 3.67 K/mm3 (0.84-5.20); LYMPHOCYTES PERCENT AUTO 25 % (21-46); MONOCYTES ABSOLUTE AUTO 0.85 K/mm3 (0.16-1.47); MONOCYTES PERCENT AUTO 6 % (4-13); Mean Corpuscular HGB Conc 32.6 g/dL (31.5-36.5); Mean Corpuscular Volume 86 fL (80-100); NEUTROPHILS ABSOLUTE AUTO 9.38 K/mm3 (1.96-9.15); NEUTROPHILS PERCENT AUTO 65 % (41-73); Platelet Count 273 K/mm3 (150-400); RDW Coefficient Variation 14.6 % (11.7-14.2); Red Blood Cell Count 4.47 M/mm3 (3.80-5.20); White Blood Cell Count 14.49 K/mm3 (4.00-11.30)
[2020-04-19 05:55] LABS: Anion Gap 7 mmol/L (6-16); Blood Urea Nitrogen 12 mg/dL (8-24); CO2, Blood 26 mmol/L (21-32); Calcium, Blood 9.5 mg/dL (8.5-10.1); Chloride, Blood 109 mmol/L (98-108); Glomerular Filtration Rate >60 (60-); Glucose, Blood 83 mg/dL (70-99); Potassium, Blood 3.1 mmol/L (3.5-5.5); Sodium, Blood 142 mmol/L (136-145)
--- NOTE | 2020-04-19 07:34 | NUR ---
INSTRUCTIONAL SUPPORT TECHNICIAN SUMMARY Patient much quieter this morning. Wendy was able to sleep for about an hour at a time without crying out for her spouse and repeating that she wanted to go home. All tele leads in place and she has been running ST 100-110 all night
[2020-04-19] MEDS ORDERED: AZIT250 PO (10:14)
[2020-04-19] MEDS ORDERED: POTA10T PO (10:16)
--- NOTE | 2020-04-19 11:40 | NUR ---
SHE DISCHARGED TO HOME AT 1130 WITH HER BOYFRIEND. SHE HAD BELONGINGS AND INSTRUCTIONS. INSTRUCTIONS GIVEN TO HER AND HER BOYFRIEND D/T HER MILD CONFUSION. SHE WAS ANXIOUS TO GO HOME. SHE KNOWS TO START THE POTASSIUM AND THE ANTIBIOTIC LATER THIS AFTERNOON.
== END 2020-04-19 11:28 | disposition home or self-care (01) | DRG 871 ==
LOC: ER 10:12 → MEDS 13:58 → ENPENDDIS 04-19 09:36 → MEDS 04-19 11:28
PROVIDERS: Emergency Medicine; Nurse Practitioner Acute Care; ADMIT Internal Medicine
DX: A41.9 Sepsis, unspecified organism (principal); G92 Toxic encephalopathy; J18.9 Pneumonia, unspecified organism; E87.1 Hypo-osmolality and hyponatremia; F33.9 Major depressive disorder, recurrent, unspecified; E03.9 Hypothyroidism, unspecified; E78.5 Hyperlipidemia, unspecified; E83.42 Hypomagnesemia; E87.6 Hypokalemia; F10.20 Alcohol dependence, uncomplicated; F15.10 Other stimulant abuse, uncomplicated; K21.9 Gastro-esophageal reflux disease without esophagitis; Z91.5 Personal history of self-harm
CPT/HCPCS: 36415; 51702; 71045; 71250; 80048; 80053; 81001; 83605; 83735; 84145; 84484; 85025; 85379; 87040; 93005; 93010; 94640; 94668; 94760; 94762; 96361-59; 96374-59; 96375-59; 97116; 97161; 97165; 97535; 99285-25; A9270; G0480; J0696; J1650; J2060; J3475; J7030; J7120

== ENCOUNTER 2020-06-13 02:01 | Emergency (ER) | payer MEDICARE, OTHER ==
[~2020-06-13] VITALS: Ht 152.4 cm; Wt 77.1 kg
[~2020-06-13 02:01] MED LIST changes: +AZIT250 PO; +POTA10T PO
[2020-06-13 02:24] LABS: BASOPHILS ABSOLUTE AUTO 0.14 K/mm3 (0.00-0.23); BASOPHILS PERCENT AUTO 1 % (0-2); EOSINOPHILS ABSOLUTE AUTO 0.51 K/mm3 (0.00-0.68); EOSINOPHILS PERCENT AUTO 4 % (0-6); Hematocrit 39.4 % (33.0-51.0); IMMATURE GRAN ABSOLUTE AUTO 0.05 K/mm3 (0.00-0.10); IMMATURE GRAN PERCENT AUTO 0 % (0-1); LYMPHOCYTES ABSOLUTE AUTO 4.44 K/mm3 (0.84-5.20); LYMPHOCYTES PERCENT AUTO 37 % (21-46); MONOCYTES ABSOLUTE AUTO 0.78 K/mm3 (0.16-1.47); MONOCYTES PERCENT AUTO 7 % (4-13); Mean Corpuscular Volume 85 fL (80-100); Mean Platelet Volume 9.1 fL (9.1-12.4); NEUTROPHILS ABSOLUTE AUTO 6.01 K/mm3 (1.96-9.15); NEUTROPHILS PERCENT AUTO 50 % (41-73); Platelet Count 268 K/mm3 (150-400); RDW Coefficient Variation 13.9 % (11.7-14.2); RDW Standard Deviation 42.9 fL (35.1-46.3); Red Blood Cell Count 4.64 M/mm3 (3.80-5.20); White Blood Cell Count 11.93 K/mm3 (4.00-11.30)
[2020-06-13 02:35] LABS: Source, Urine Clean Catch
[2020-06-13 02:38] LABS: Bilirubin, Urine Neg (Neg); Blood, Urine Neg (Neg); Glucose Qualitative, Urine Neg (Neg); Ketones, Urine Neg (Neg); Leukocyte Esterase, Urine Neg (Neg); Nitrite, Urine Neg (Neg); Protein, Urine Neg (Neg); Urobilinogen, Urine NORM (Normal)
[2020-06-13 02:40] LABS: Appearance, Urine Clear (Clear); Color, Urine Yellow (P-Yellow)
[2020-06-13 02:43] LABS: Alanine Aminotransfer (ALT/SGP 29 U/L (12-78); Albumin, Blood 3.3 g/dL (3.4-5.0); Albumin/Globulin Ratio 0.9 (0.8-1.8); Alk Phos 117 U/L (50-136); Anion Gap 8 mmol/L (6-16); Aspartate Aminotrans (AST/SGOT 27 U/L (12-37); Bilirubin, Total 0.2 mg/dL (0.1-1.0); Blood Urea Nitrogen 10 mg/dL (8-24); Bun/Creatinine Ratio 21.4 (12.0-20.0); CO2, Blood 27 mmol/L (21-32); Chloride, Blood 108 mmol/L (98-108); Creatinine, Blood 0.47 mg/dL (0.40-1.00); Ethanol (Alcohol), Blood, Med <3 mg/dL; Globulin, Blood 3.6 g/dL (2.2-4.0); Glomerular Filtration Rate >60 (60-); Glucose, Blood 129 mg/dL (70-99); Potassium, Blood 3.2 mmol/L (3.5-5.5); Salicylate <1.7 mg/dL (2.8-20.0); Sodium, Blood 143 mmol/L (136-145); Total Protein, Blood 6.9 g/dL (6.4-8.2)
[2020-06-13 02:52] LABS: U Amphetamine Screen Not Detected; U Barbituate Screen Not Detected; U Benzodiazapine Screen Not Detected; U Buprenorphine Screen Not Detected; U Cannabinoids Screen Not Detected; U Cocaine Screen Not Detected; U Methadone Screen Not Detected; U Methamphetamine Screen Not Detected; U Opiates Screen DETECTED; U Oxycodone Screen Not Detected; U Phencyclidine Screen Not Detected; U Propoxyphene Screen Not Detected
[2020-06-13 02:59] LABS: Acetaminophen, Random <2.0 ug/mL (10.0-30.0)
[2020-06-13 03:36] LABS: Troponin I <0.015 ng/mL (0.000-0.040)
[2020-06-13] MEDS ORDERED: HYDROXYZINE PO (05:42)
== END 2020-06-13 09:39 | disposition home or self-care (01) ==
LOC: ER 02:01
PROVIDERS: Emergency Medicine
DX: R07.9 Chest pain, unspecified (principal); Z88.0 Allergy status to penicillin; Z88.5 Allergy status to narcotic agent; Z79.899 Other long term (current) drug therapy; Z87.891 Personal history of nicotine dependence
CPT/HCPCS: 36415; 80053; 81003; 81025; 84484; 85025; 93005; 93010; 96361-59; 96374-59; 99285-25; G0480; J1885; J7030; P9612

== ENCOUNTER 2020-09-11 20:08 | Emergency (ER) | payer MEDICARE, OTHER ==
[~2020-09-11] VITALS: Ht 152.4 cm; Wt 75.3 kg
[~2020-09-11 20:08] MED LIST changes: +HYDROXYZINE PO
[2020-09-11 20:38] LABS: BASOPHILS ABSOLUTE AUTO 0.09 K/mm3 (0.00-0.23); BASOPHILS PERCENT AUTO 1 % (0-2); EOSINOPHILS ABSOLUTE AUTO 0.34 K/mm3 (0.00-0.68); EOSINOPHILS PERCENT AUTO 3 % (0-6); Hemoglobin 13.3 g/dL (11.5-16.0); IMMATURE GRAN ABSOLUTE AUTO 0.08 K/mm3 (0.00-0.10); IMMATURE GRAN PERCENT AUTO 1 % (0-1); LYMPHOCYTES ABSOLUTE AUTO 3.63 K/mm3 (0.84-5.20); LYMPHOCYTES PERCENT AUTO 31 % (21-46); MONOCYTES ABSOLUTE AUTO 0.61 K/mm3 (0.16-1.47); MONOCYTES PERCENT AUTO 5 % (4-13); Mean Corpuscular HGB 27.9 pg (26.0-34.0); Mean Corpuscular HGB Conc 33.3 g/dL (31.5-36.5); Mean Corpuscular Volume 84 fL (80-100); Mean Platelet Volume 8.8 fL (9.1-12.4); NEUTROPHILS ABSOLUTE AUTO 7.02 K/mm3 (1.96-9.15); NEUTROPHILS PERCENT AUTO 60 % (41-73); Platelet Count 241 K/mm3 (150-400); RDW Coefficient Variation 13.9 % (11.7-14.2); RDW Standard Deviation 42.9 fL (35.1-46.3); Red Blood Cell Count 4.76 M/mm3 (3.80-5.20); White Blood Cell Count 11.77 K/mm3 (4.00-11.30)
[2020-09-11 21:08] LABS: Alanine Aminotransfer (ALT/SGP 34 U/L (12-78); Albumin, Blood 3.3 g/dL (3.4-5.0); Albumin/Globulin Ratio 0.9 (0.8-1.8); Alk Phos 115 U/L (50-136); Anion Gap 5 mmol/L (6-16); Aspartate Aminotrans (AST/SGOT 23 U/L (12-37); Bilirubin, Total 0.2 mg/dL (0.1-1.0); Blood Urea Nitrogen 8 mg/dL (8-24); CO2, Blood 29 mmol/L (21-32); Calcium, Blood 8.8 mg/dL (8.5-10.1); Chloride, Blood 107 mmol/L (98-108); Creatinine, Blood 0.62 mg/dL (0.40-1.00); Globulin, Blood 3.6 g/dL (2.2-4.0); Glomerular Filtration Rate >60 (60-); Glucose, Blood 115 mg/dL (70-99); Potassium, Blood 3.2 mmol/L (3.5-5.5); Sodium, Blood 141 mmol/L (136-145); Total Protein, Blood 6.9 g/dL (6.4-8.2)
== END 2020-09-11 23:15 | disposition home or self-care (01) ==
LOC: ER 20:08
PROVIDERS: Physician Assistant
DX: R47.9 Unspecified speech disturbances (principal); R20.0 Anesthesia of skin; R20.2 Paresthesia of skin; E86.0 Dehydration; F17.210 Nicotine dependence, cigarettes, uncomplicated; Z88.5 Allergy status to narcotic agent; Z88.0 Allergy status to penicillin; Z79.899 Other long term (current) drug therapy
CPT/HCPCS: 70450; 80053; 85025; 93005; 93010; 99285-25; J7030

== ENCOUNTER 2022-02-17 15:56 | Emergency (ER) | payer MEDICARE, OTHER ==
[~2022-02-17] VITALS: Ht 154.9 cm; Wt 81.7 kg
[2022-02-17 16:37] LABS: BASOPHILS ABSOLUTE AUTO 0.11 K/mm3 (0.00-0.23); BASOPHILS PERCENT AUTO 1 % (0-2); EOSINOPHILS ABSOLUTE AUTO 0.73 K/mm3 (0.00-0.68); EOSINOPHILS PERCENT AUTO 5 % (0-6); Hematocrit 42.9 % (33.0-51.0); Hemoglobin 14.1 g/dL (11.5-16.0); IMMATURE GRAN ABSOLUTE AUTO 0.12 K/mm3 (0.00-0.10); IMMATURE GRAN PERCENT AUTO 1 % (0-1); LYMPHOCYTES ABSOLUTE AUTO 3.98 K/mm3 (0.84-5.20); LYMPHOCYTES PERCENT AUTO 29 % (21-46); MONOCYTES ABSOLUTE AUTO 0.94 K/mm3 (0.16-1.47); MONOCYTES PERCENT AUTO 7 % (4-13); Mean Corpuscular HGB 28.3 pg (26.0-34.0); Mean Corpuscular HGB Conc 32.9 g/dL (31.5-36.5); Mean Corpuscular Volume 86 fL (80-100); Mean Platelet Volume 9.2 fL (9.1-12.4); NEUTROPHILS ABSOLUTE AUTO 7.94 K/mm3 (1.96-9.15); NEUTROPHILS PERCENT AUTO 57 % (41-73); Platelet Count 296 K/mm3 (150-400); RDW Coefficient Variation 13.7 % (11.7-14.2); RDW Standard Deviation 42.4 fL (35.1-46.3); Red Blood Cell Count 4.99 M/mm3 (3.80-5.20); White Blood Cell Count 13.82 K/mm3 (4.00-11.30)
[2022-02-17 16:58] LABS: Alanine Aminotransfer (ALT/SGP 38 U/L (12-78); Albumin, Blood 3.8 g/dL (3.4-5.0); Alk Phos 120 U/L (50-136); Anion Gap 7 mmol/L (6-16); Aspartate Aminotrans (AST/SGOT 30 U/L (12-37); Bilirubin, Total 0.2 mg/dL (0.1-1.0); Blood Urea Nitrogen 10 mg/dL (8-24); Bun/Creatinine Ratio 15.4 (12.0-20.0); CO2, Blood 26 mmol/L (21-32); Calcium, Blood 9.5 mg/dL (8.5-10.1); Chloride, Blood 106 mmol/L (98-108); Creatinine, Blood 0.65 mg/dL (0.40-1.00); Ethanol (Alcohol), Blood, Med <3 mg/dL; Globulin, Blood 3.7 g/dL (2.2-4.0); Glomerular Filtration Rate 97 (60-); Glucose, Blood 125 mg/dL (70-99); Potassium, Blood 3.4 mmol/L (3.5-5.5); Sodium, Blood 139 mmol/L (136-145); Total Protein, Blood 7.5 g/dL (6.4-8.2)
== END 2022-02-18 00:01 | disposition left against medical advice (07) ==
LOC: ER 15:56
PROVIDERS: Physician Assistant
DX: M54.9 Dorsalgia, unspecified (principal); R29.810 Facial weakness; Z53.21 Procedure and treatment not carried out due to patient leaving prior to being seen by health care provider
CPT/HCPCS: 70450; 80053; 85025; 93005; 93010; 99283-25; G0480

== ENCOUNTER 2023-03-18 20:26 | Emergency (ER) | payer MEDICARE, OTHER ==
[~2023-03-18] VITALS: Ht 152.4 cm; Wt 86.2 kg
[2023-03-18 21:02] LABS: Hematocrit 41.3 % (33.0-51.0); Hemoglobin 13.8 g/dL (11.5-16.0); Mean Corpuscular HGB 28.5 pg (26.0-34.0); Mean Corpuscular HGB Conc 33.4 g/dL (31.5-36.5); Mean Corpuscular Volume 85 fL (80-100); Mean Platelet Volume 9.5 fL (9.1-12.4); Platelet Count 222 K/mm3 (150-400); RDW Coefficient Variation 15.2 % (11.7-14.2); Red Blood Cell Count 4.85 M/mm3 (3.80-5.20); White Blood Cell Count 25.01 K/mm3 (4.00-11.30)
[2023-03-18 21:21] LABS: Albumin/Globulin Ratio 0.7 (0.8-1.8); BAND PERCENT MAN 28 % (0-8); BASOPHILS PERCENT MAN 0 % (0-2); Bilirubin, Total 1.1 mg/dL (0.1-1.0); Bun/Creatinine Ratio 19.1 (12.0-20.0); Creatinine, Blood 1.1 mg/dL (0.40-1.00); EOSINOPHILS PERCENT MAN 0 % (0-6); Globulin, Blood 4.4 g/dL (2.2-4.0); LYMPHOCYTES % ATYPICAL MANUAL 1 % (0-0); LYMPHOCYTES PERCENT MAN 3 % (21-46); METAMYELOCYTE ABSOLUTE MAN 0.25 K/mm3 (0.00-0.00); METAMYELOCYTE PERCENT MAN 1 % (0-0); MONOCYTES ABSOLUTE MAN 1.25 K/mm3 (0.16-1.47); MONOCYTES PERCENT MAN 5 % (4-13); Potassium, Blood 3.4 mmol/L (3.5-5.5); SEG NEUTROPHILS PERCENT MAN 62 % (41-73); TOTAL CELLS COUNTED 100; Total Protein, Blood 7.4 g/dL (6.4-8.2)
[2023-03-18 21:57] VITALS: BP 124/82
== END 2023-03-18 22:27 | disposition left against medical advice (07) ==
LOC: ER 20:26
PROVIDERS: Physician Assistant
DX: R06.02 Shortness of breath (principal); Z53.21 Procedure and treatment not carried out due to patient leaving prior to being seen by health care provider; F17.210 Nicotine dependence, cigarettes, uncomplicated; Z88.0 Allergy status to penicillin; Z88.5 Allergy status to narcotic agent
CPT/HCPCS: 71045; 80053; 85025; 99282-25

== ENCOUNTER 2023-03-25 21:31 | Inpatient (IN) | payer MEDICARE, OTHER ==
[~2023-03-25] VITALS: Ht 157.5 cm; Wt 89.1 kg
[~2023-03-25 21:31] MED LIST changes: -TRAZ100 PO; +TRAZ50 PO
[2023-03-25 22:52] LABS: BASOPHILS ABSOLUTE AUTO 0.09 K/mm3 (0.00-0.23); BASOPHILS PERCENT AUTO 1 % (0-2); EOSINOPHILS ABSOLUTE AUTO 0.18 K/mm3 (0.00-0.68); EOSINOPHILS PERCENT AUTO 1 % (0-6); Hematocrit 35.3 % (33.0-51.0); IMMATURE GRAN ABSOLUTE AUTO 0.44 K/mm3 (0.00-0.10); IMMATURE GRAN PERCENT AUTO 3 % (0-1); LYMPHOCYTES ABSOLUTE AUTO 2.24 K/mm3 (0.84-5.20); LYMPHOCYTES PERCENT AUTO 15 % (21-46); MONOCYTES ABSOLUTE AUTO 0.92 K/mm3 (0.16-1.47); MONOCYTES PERCENT AUTO 6 % (4-13); Mean Corpuscular HGB 28.4 pg (26.0-34.0); Mean Corpuscular Volume 84 fL (80-100); Mean Platelet Volume 9.4 fL (9.1-12.4); NEUTROPHILS ABSOLUTE AUTO 10.72 K/mm3 (1.96-9.15); NEUTROPHILS PERCENT AUTO 74 % (41-73); Platelet Count 351 K/mm3 (150-400); RDW Coefficient Variation 14.6 % (11.7-14.2); RDW Standard Deviation 44.1 fL (35.1-46.3); Red Blood Cell Count 4.22 M/mm3 (3.80-5.20); White Blood Cell Count 14.59 K/mm3 (4.00-11.30)
[2023-03-25 23:05] LABS: Albumin, Blood 2.5 g/dL (3.4-5.0); Albumin/Globulin Ratio 0.5 (0.8-1.8); Bilirubin, Total 0.2 mg/dL (0.1-1.0); Bun/Creatinine Ratio 21.3 (12.0-20.0); Calcium, Blood 8.4 mg/dL (8.5-10.1); Creatinine, Blood 0.52 mg/dL (0.40-1.00); Globulin, Blood 4.9 g/dL (2.2-4.0); Potassium, Blood 3.1 mmol/L (3.5-5.5); Total Protein, Blood 7.4 g/dL (6.4-8.2)
[2023-03-25 23:25] LABS: Source, Urine Straight Cath
[2023-03-25 23:35] LABS: Bilirubin, Urine Neg (Neg); Blood, Urine 1+ (Neg); Glucose Qualitative, Urine Neg (Neg); Ketones, Urine Neg (Neg); Leukocyte Esterase, Urine Neg (Neg); Nitrite, Urine Neg (Neg); Protein, Urine 1+ (Neg); Specific Gravity, Urine 1.015 (1.003-1.022); Urobilinogen, Urine NORM (Normal)
[2023-03-25 23:50] LABS: Appearance, Urine Hazy (Clear); Color, Urine Yellow (P-Yellow)
[2023-03-25 23:52] LABS: Bacteria Mod /hpf; Red Blood Cells, Urine 0-2 /hpf (0-2); Squamous Epithelial Cells Many /hpf (Few); White Blood Cells, Urine 0-2 /hpf (0-5)
[2023-03-26 03:56] VITALS: BP 128/65
[2023-03-26 06:13] LABS: BASOPHILS ABSOLUTE AUTO 0.06 K/mm3 (0.00-0.23); BASOPHILS PERCENT AUTO 1 % (0-2); EOSINOPHILS ABSOLUTE AUTO 0.25 K/mm3 (0.00-0.68); EOSINOPHILS PERCENT AUTO 2 % (0-6); Hematocrit 32.7 % (33.0-51.0); Hemoglobin 10.8 g/dL (11.5-16.0); IMMATURE GRAN ABSOLUTE AUTO 0.48 K/mm3 (0.00-0.10); IMMATURE GRAN PERCENT AUTO 4 % (0-1); LYMPHOCYTES ABSOLUTE AUTO 2.97 K/mm3 (0.84-5.20); LYMPHOCYTES PERCENT AUTO 24 % (21-46); MONOCYTES ABSOLUTE AUTO 0.82 K/mm3 (0.16-1.47); MONOCYTES PERCENT AUTO 7 % (4-13); Mean Corpuscular Volume 85 fL (80-100); Mean Platelet Volume 9.3 fL (9.1-12.4); NEUTROPHILS ABSOLUTE AUTO 7.92 K/mm3 (1.96-9.15); NEUTROPHILS PERCENT AUTO 63 % (41-73); Platelet Count 330 K/mm3 (150-400); RDW Coefficient Variation 14.9 % (11.7-14.2); RDW Standard Deviation 46.1 fL (35.1-46.3); Red Blood Cell Count 3.86 M/mm3 (3.80-5.20)
[2023-03-26 06:50] LABS: Albumin, Blood 2.2 g/dL (3.4-5.0); Albumin/Globulin Ratio 0.5 (0.8-1.8); Bilirubin, Total 0.3 mg/dL (0.1-1.0); Bun/Creatinine Ratio 21.2 (12.0-20.0); Calcium, Blood 7.9 mg/dL (8.5-10.1); Creatinine, Blood 0.57 mg/dL (0.40-1.00); Globulin, Blood 4.4 g/dL (2.2-4.0); Potassium, Blood 3.4 mmol/L (3.5-5.5); Total Protein, Blood 6.6 g/dL (6.4-8.2)
[2023-03-26 07:38] VITALS: BP 114/58
[2023-03-26 15:53] LABS: Source, Urine Foley catheter
[2023-03-26 15:55] LABS: Bilirubin, Urine Neg (Neg); Blood, Urine Neg (Neg); Glucose Qualitative, Urine Neg (Neg); Ketones, Urine Neg (Neg); Leukocyte Esterase, Urine Neg (Neg); Nitrite, Urine Neg (Neg); Protein, Urine 1+ (Neg); Specific Gravity, Urine 1.015 (1.003-1.022); Urobilinogen, Urine NORM (Normal)
[2023-03-26 16:40] VITALS: BP 118/63
[2023-03-26 16:46] LABS: Appearance, Urine Clear (Clear); Color, Urine Yellow (P-Yellow)
--- NOTE | 2023-03-26 17:32 | NUR ---
SHIFT SUMMARY: PATIENT IS A/OX4. PLEASANT AND COOPERATIVE c CARE. USES CALL LIGHT APPROPRIATELY AND ABLE TO MAKE NEEDS KNOWN. DENIES CP/PRESSURE, N/V, SOB AND DIZZINESS. LUNGS COARSE AND WHEEZY TO YEN/LLL TO AUSCULTATION. PATIENT REPORTS "L SIDED PAIN AND BURNING SENSATIONS EVERYTIME I URINATE". BLADDER SCAN WERE PERFORMED AND APPEARS TO HAVE 878 MLS IN BLADDER. NOTIFIED DR. MORAN REGARDING THIS CONCERN, RECEIVED ORDER TO PLACED REYNAGA. REYNAGA PLACED FOR ACUTE RETENTION AND IMMEDIATELY DRAINED 1000 MLS OF JOHN COLOR URINE. PATIENT REPORTS "FEELING RELEIVED AND PAIN TO LEFT SIDED HAS DECREASED". PATIENT WORKS c PT/OT MOBILITY THIS PM AND RECOMMENDED SNF. PATIENT IS SITTING UP IN THE RECLINER CHAIR AND TOLERATED WELL. PATIENT RECEIVED IV ABX AND SCHEDULED MEDS PER EMAR. VITAL SIGNS REVIEWED. PIV TO BILAT FOREARMS SALINE LOCKED. CALL LIGHT IN REACH.
[2023-03-26 18:39] LABS: U Amphetamine Screen DETECTED; U Barbituate Screen Not Detected; U Benzodiazapine Screen Not Detected; U Buprenorphine Screen Not Detected; U Cannabinoids Screen Not Detected; U Cocaine Screen Not Detected; U Methadone Screen Not Detected; U Methamphetamine Screen DETECTED; U Opiates Screen Not Detected; U Oxycodone Screen Not Detected; U Phencyclidine Screen Not Detected; U Propoxyphene Screen Not Detected
[2023-03-26 20:03] VITALS: BP 130/69
[2023-03-27] MEDS ORDERED: ESCI10 PO (02:26)
[2023-03-27] MEDS ORDERED: HYDROXYZINE PAM25 MG PO (02:27)
[2023-03-27 03:30] VITALS: BP 139/79
--- NOTE | 2023-03-27 05:15 | NUR ---
SHIFT SUMMARY PATIENT A/Ox4, APPEARS LETHARGIC, RESPONDS APPROPRIATELY. STATES, "I'M JUST TIRED." DENIES PAIN NOR SOB/DIFFICULTY BREATHING. CRACKLES NOTED TO LLL, OTHERWISE LUNGS CTA. REQUIRES 1 ASSIST FOR TRANSFERS DUE TO ONGOING BLE WEAKNESS. SPO2 90-96% ON RA. NO ACUTE CHANGES NOTED OVERNIGHT. BED LOCKED AND IN LOWEST POSITION, CALL LIGHT WITHIN REACH.
[2023-03-27 05:21] LABS: BASOPHILS ABSOLUTE AUTO 0.08 K/mm3 (0.00-0.23); BASOPHILS PERCENT AUTO 1 % (0-2); EOSINOPHILS ABSOLUTE AUTO 0.27 K/mm3 (0.00-0.68); EOSINOPHILS PERCENT AUTO 2 % (0-6); Hematocrit 35.1 % (33.0-51.0); Hemoglobin 11.5 g/dL (11.5-16.0); IMMATURE GRAN ABSOLUTE AUTO 0.23 K/mm3 (0.00-0.10); IMMATURE GRAN PERCENT AUTO 2 % (0-1); LYMPHOCYTES PERCENT AUTO 23 % (21-46); MONOCYTES ABSOLUTE AUTO 0.68 K/mm3 (0.16-1.47); MONOCYTES PERCENT AUTO 5 % (4-13); Mean Corpuscular HGB 27.9 pg (26.0-34.0); Mean Corpuscular HGB Conc 32.8 g/dL (31.5-36.5); Mean Corpuscular Volume 85 fL (80-100); NEUTROPHILS ABSOLUTE AUTO 8.47 K/mm3 (1.96-9.15); NEUTROPHILS PERCENT AUTO 67 % (41-73); Platelet Count 356 K/mm3 (150-400); RDW Coefficient Variation 14.9 % (11.7-14.2); RDW Standard Deviation 46.1 fL (35.1-46.3); Red Blood Cell Count 4.12 M/mm3 (3.80-5.20); White Blood Cell Count 12.63 K/mm3 (4.00-11.30)
[2023-03-27 06:10] LABS: Bun/Creatinine Ratio 18.5 (12.0-20.0); Calcium, Blood 8.4 mg/dL (8.5-10.1); Creatinine, Blood 0.54 mg/dL (0.40-1.00); Potassium, Blood 3.7 mmol/L (3.5-5.5)
[2023-03-27 07:47] VITALS: BP 156/75
[2023-03-27 15:24] VITALS: BP 150/80
--- NOTE | 2023-03-27 15:49 | NUR ---
SHIFT SUMMARY: NO NEW ACUTE CHANGES IN PATIENT CONDITION THIS SHIFT. PATIENT IS A/OX4. CALM, PLEASANT AND COOPERATIVE c CARE PROVIDED. PATIENT DENIES CP/PRESSURE, SOB, N/V AND DIZZINESS. PATIENT REPORTS "FEELING BETTER TODAY, NO PAIN TO L SIDE AND NO BURNING SENSATION TO MY PRIVATE AREA." PATIENT WORKS c PT MOBILITY TODAY, PT STILL RECOMMENDED SNF. PATIENT RECEIVED IV ABX AND SCHEDULED MEDS PER EMAR. REYNAGA PATENT, DRAINING LIGHT ORANGE URINE TO GRAVITY. VITAL SIGNS REVIEWED. BED ALARM ON FOR SAFETY. PIV TO BILAT FOREARM SALINE LOCKED. CALL LIGHT IN REACH.
[2023-03-27 19:25] VITALS: BP 137/74
--- NOTE | 2023-03-28 04:20 | NUR ---
SHIFT SUMMARY PATIENT A/Ox4, APPEARS MORE ALERT AND INTERACTIVE THIS SHIFT COMPARED TO YESTERDAY. DENIES PAIN NOR SOB/DIFFICULTY BREATHING. CONTINUES TO HAVE CRACKLES NOTED TO BASES, THOUGH MORE FAINT. 1 ASSIST FOR TRANSFERS. MAINTAINING SPO2 >90% ON RA. NO ACUTE CHANGES NOTED OVERNIGHT. BED LOCKED AND IN LOWEST POSITION, CALL LIGHT WITHIN REACH.
[2023-03-28 04:29] VITALS: BP 139/80
[2023-03-28 07:28] VITALS: BP 136/79
[2023-03-28 15:40] VITALS: BP 133/78
--- NOTE | 2023-03-28 17:50 | NUR ---
SHIFT SUMMARY: NO NEW ACUTE CHANGES IN PATIENT CONDITION THIS SHIFT. PATIENT IS A/OX4. CALM, PLEASANT AND COOPERATIVE c CARE PROVIDED. PATIENT DENIES CP/PRESSURE, SOB, N/V AND DIZZINESS. PATIENT REPORTS PAIN 7/10 TO R SHOULDER BLADE, MEDICATED c PO TYLENOL c GOOD EFFECT. REYNAGA PLACED FOR RETENTION, PATENT DRAINING YELLOW URINE TO GRAVITY. PATIENT AMBULATES TO BATHROOM c 1 ASSIST, GAITBELT, FWW AND HAD BROWN FORMED LARGE BM THIS SHIFT. PATIENT UP IN THE RECLINER CHAIR FOR DINNER. PATIENT RECEIVED IV ABX, AND SCHEDULED MEDS PER EMAR. VITAL SIGNS REVIEWED. PIV TO R FOREARM SALINE LOCKED.
[2023-03-28 19:38] VITALS: BP 143/86
--- NOTE | 2023-03-29 04:03 | NUR ---
SHIFT SUMMARY PATIENT ALERT AND ORIENTED, PLEASANT/COOPERATIVE. DENIES PAIN NOR SOB/DIFFICULTY BREATHING AT TIME OF ASSESSMENT. REQUIRES 1 ASSIST FOR TRANSFERS. MAINTAINING SPO2 >90 ON RA. REYNAGA CATHETER IN PLACE WITH CLEAR, YELLOW OUTPUT. NO ACUTE CHANGES NOTED OVERNIGHT. BED LOCKED AND IN LOWEST POSITION, CALL LIGHT WITHIN REACH.
[2023-03-29 04:28] VITALS: BP 139/79
[2023-03-29 04:54] LABS: Hematocrit 37.5 % (33.0-51.0); Hemoglobin 12.4 g/dL (11.5-16.0); Mean Corpuscular HGB 27.9 pg (26.0-34.0); Mean Corpuscular HGB Conc 33.1 g/dL (31.5-36.5); Mean Corpuscular Volume 85 fL (80-100); Mean Platelet Volume 9.1 fL (9.1-12.4); Platelet Count 432 K/mm3 (150-400); RDW Coefficient Variation 14.5 % (11.7-14.2); RDW Standard Deviation 44.6 fL (35.1-46.3); Red Blood Cell Count 4.44 M/mm3 (3.80-5.20); White Blood Cell Count 13.28 K/mm3 (4.00-11.30)
[2023-03-29 05:15] LABS: Bun/Creatinine Ratio 24.7 (12.0-20.0); Creatinine, Blood 0.57 mg/dL (0.40-1.00); Magnesium, Blood 1.4 mg/dL (1.6-2.4); Potassium, Blood 3.6 mmol/L (3.5-5.5)
[2023-03-29 07:27] VITALS: BP 163/90
[2023-03-29 15:42] VITALS: BP 145/84
--- NOTE | 2023-03-29 16:21 | NUR ---
SHIFT SUMMARY PT AOX4, SBA TO THE BATHROOM. NO COMPLAINTS THIS SHIFT. PT HAS BEEN SLEEPING OFF AND ON THROUGHOUT THE SHIFT. PT WORKED WITH PT AND OT, TOLERATED IT WELL. REYNAGA CATHETER IN PLACE AND DRAINING TO GRAVITY. CALL LIGHT WITHIN REACH, BED IN THE LOWEST POSITION. WILL REPORT TO ONCOMING NURSE.
[2023-03-29 19:13] VITALS: BP 154/91
--- NOTE | 2023-03-30 04:48 | NUR ---
SHIFT SUMMARY PATIENT IS ALERT AND ORIENTED. PATIENT HAS NOT HAD ANY ACUTE EVENTS THIS SHIFT. VITAL SIGNS REVIEWED. PATIENT HAS HAD NO COMPLAINTS OF PAIN, NAUSEA, SOB OR VOMITTING THIS SHIFT. PATIENT HAD A SPELL OF ITCHING WHICH WAS RELIEVED WITH TYLENOL AND POWDER. PATIENT HAS SLEPT MOST OF SHIFT WITHOUT INCIDENT. BED IN LOCKED AND LOWEST POSITION. CALL LIGHT IN PLACE.
[2023-03-30 05:09] VITALS: BP 141/87
[2023-03-30 07:13] VITALS: BP 161/80
[2023-03-30] MEDS ORDERED: DOXY100 PO (14:02)
[2023-03-30] MEDS ORDERED: GABA300 PO (14:03)
[2023-03-30 15:00] VITALS: BP 133/86
--- NOTE | 2023-03-30 16:49 | NUR ---
SHIFT SUMMARY ALERT, ORIENTED, PLEASANT, COOPERATIVE. TOLERATING REGULAR DIET AND LIQUIDS. WEAK, SBA WITH FWW TO RECLINER AND TOILET. REYNAGA DC'D IN AM, VOIDED ADEQUATELY BY LATE AFTERNOON. DISCHARGE EDUCATION GIVEN ON NEW MEDICATIONS SENT TO PHARMACY, AND FOLLOW UP WITH PCP. IV DC'D WNL. PATIENT LEFT UNIT AT 1645 VIA WHEELCHAIR WITH SIGNIFICANT OTHER FOR HOME.
== END 2023-03-30 16:48 | disposition home or self-care (01) | DRG 194 ==
LOC: ER 21:31 → MEDS 21:32
PROVIDERS: Internal Medicine; Student in an Organized Health Care Education/Training Program; ADMIT Internal Medicine
DX: J18.9 Pneumonia, unspecified organism (principal); J44.0 Chronic obstructive pulmonary disease with (acute) lower respiratory infection; R79.1 Abnormal coagulation profile; R19.7 Diarrhea, unspecified; E87.6 Hypokalemia; F15.10 Other stimulant abuse, uncomplicated; M54.9 Dorsalgia, unspecified; G89.29 Other chronic pain; R32 Unspecified urinary incontinence; R33.9 Retention of urine, unspecified; M51.9 Unspecified thoracic, thoracolumbar and lumbosacral intervertebral disc disorder; E78.5 Hyperlipidemia, unspecified; F32.A Depression, unspecified; Z90.49 Acquired absence of other specified parts of digestive tract; Z98.890 Other specified postprocedural states; Z88.5 Allergy status to narcotic agent; Z88.0 Allergy status to penicillin; Z79.899 Other long term (current) drug therapy; Z79.890 Hormone replacement therapy; Z79.51 Long term (current) use of inhaled steroids; Z87.891 Personal history of nicotine dependence
CPT/HCPCS: 36415; 71046; 71260; 74177; 80048; 80053; 81001; 83605; 83735; 84145; 85025; 85027; 85379; 87040; 87449; 94760; 96361; 96365; 96367; 96372; 96375; 97110; 97116; 97162; 97166; 97530; 97535; 99285-25; A9270; G0378; J0456; J0696; J1650; J1885; J2405; J7030; J7050; P9612; Q9967

== ENCOUNTER → 2023-06-22 | Outpatient (CLI) | payer MEDICARE, OTHER ==
[~2023-06-22] MED LIST changes: +ESCI10 PO; +HYDROXYZINE PAM25 MG PO
[2023-06-22 13:51] LABS: BASOPHILS ABSOLUTE AUTO 0.09 K/mm3 (0.00-0.23); BASOPHILS PERCENT AUTO 1 % (0-2); EOSINOPHILS ABSOLUTE AUTO 0.42 K/mm3 (0.00-0.68); EOSINOPHILS PERCENT AUTO 4 % (0-6); Hematocrit 43.9 % (33.0-51.0); Hemoglobin 14.3 g/dL (11.5-16.0); IMMATURE GRAN ABSOLUTE AUTO 0.04 K/mm3 (0.00-0.10); IMMATURE GRAN PERCENT AUTO 0 % (0-1); LYMPHOCYTES ABSOLUTE AUTO 2.98 K/mm3 (0.84-5.20); LYMPHOCYTES PERCENT AUTO 27 % (21-46); MONOCYTES ABSOLUTE AUTO 0.59 K/mm3 (0.16-1.47); MONOCYTES PERCENT AUTO 5 % (4-13); Mean Corpuscular HGB 27.8 pg (26.0-34.0); Mean Corpuscular HGB Conc 32.6 g/dL (31.5-36.5); Mean Corpuscular Volume 85 fL (80-100); Mean Platelet Volume 9.4 fL (9.1-12.4); NEUTROPHILS ABSOLUTE AUTO 6.97 K/mm3 (1.96-9.15); NEUTROPHILS PERCENT AUTO 63 % (41-73); Platelet Count 252 K/mm3 (150-400); RDW Coefficient Variation 13.8 % (11.7-14.2); RDW Standard Deviation 42.9 fL (35.1-46.3); Red Blood Cell Count 5.14 M/mm3 (3.80-5.20); White Blood Cell Count 11.09 K/mm3 (4.00-11.30)
[2023-06-22 14:04] LABS: Albumin, Blood 3.7 g/dL (3.4-5.0); Albumin/Globulin Ratio 0.9 (0.8-1.8); Bilirubin, Total 0.4 mg/dL (0.1-1.0); Bun/Creatinine Ratio 17.6 (12.0-20.0); Calcium, Blood 9.2 mg/dL (8.5-10.1); Creatinine, Blood 0.74 mg/dL (0.40-1.00); Globulin, Blood 4.2 g/dL (2.2-4.0); Potassium, Blood 3.3 mmol/L (3.5-5.5); Total Protein, Blood 7.9 g/dL (6.4-8.2)
== END ==
LOC: LAB 13:48 → LAB SHORT 13:48
PROVIDERS: Chiropractor
DX: R05.9 Cough, unspecified (principal)
CPT/HCPCS: 80053; 85025

== ENCOUNTER → 2024-04-01 | Outpatient (CLI) | payer MEDICARE, OTHER ==
[2024-04-01 15:42] LABS: BASOPHILS ABSOLUTE AUTO 0.11 K/mm3 (0.00-0.23); BASOPHILS PERCENT AUTO 1 % (0-2); EOSINOPHILS ABSOLUTE AUTO 0.37 K/mm3 (0.00-0.68); EOSINOPHILS PERCENT AUTO 3 % (0-6); Hematocrit 41.2 % (33.0-51.0); Hemoglobin 13.9 g/dL (11.5-16.0); IMMATURE GRAN ABSOLUTE AUTO 0.08 K/mm3 (0.00-0.10); IMMATURE GRAN PERCENT AUTO 1 % (0-1); LYMPHOCYTES ABSOLUTE AUTO 2.86 K/mm3 (0.84-5.20); LYMPHOCYTES PERCENT AUTO 22 % (21-46); MONOCYTES ABSOLUTE AUTO 0.73 K/mm3 (0.16-1.47); MONOCYTES PERCENT AUTO 6 % (4-13); Mean Corpuscular HGB 28.3 pg (26.0-34.0); Mean Corpuscular HGB Conc 33.7 g/dL (31.5-36.5); Mean Corpuscular Volume 84 fL (80-100); Mean Platelet Volume 9.9 fL (9.1-12.4); NEUTROPHILS ABSOLUTE AUTO 8.85 K/mm3 (1.96-9.15); NEUTROPHILS PERCENT AUTO 68 % (41-73); Platelet Count 295 K/mm3 (150-400); RDW Coefficient Variation 14.1 % (11.7-14.2); RDW Standard Deviation 43.2 fL (35.1-46.3); Red Blood Cell Count 4.92 M/mm3 (3.80-5.20)
[2024-04-01 16:02] LABS: Albumin, Blood 3.6 g/dL (3.4-5.0); Albumin/Globulin Ratio 0.9 (0.8-1.8); Bilirubin, Total 0.5 mg/dL (0.1-1.0); Bun/Creatinine Ratio 24.5 (12.0-20.0); Calcium, Blood 9.9 mg/dL (8.5-10.1); Creatinine, Blood 0.57 mg/dL (0.40-1.00); Globulin, Blood 4.2 g/dL (2.2-4.0); Magnesium, Blood 1.3 mg/dL (1.6-2.4); Phosphorus, Blood 3.5 mg/dL (2.5-4.9); Potassium, Blood 3.5 mmol/L (3.5-5.5); Thyroid Stimulating Hormone 1.6 uIU/mL (0.360-4.800); Total Protein, Blood 7.8 g/dL (6.4-8.2)
== END ==
LOC: LAB 15:30 → LAB SHORT 15:30
PROVIDERS: Family Medicine
DX: R53.1 Weakness (principal); R63.5 Abnormal weight gain; I50.9 Heart failure, unspecified
CPT/HCPCS: 80053; 83735; 83880; 84100; 84443; 85025

== ENCOUNTER 2024-04-08 15:11 | Observation (INO) | payer MEDICARE, OTHER ==
[~2024-04-08] VITALS: Ht 152.4 cm; Wt 91.7 kg
[2024-04-08] MEDS ORDERED: FARXIGA5 MG PO (16:15)
[2024-04-08] MEDS ORDERED: FLUTICASONE-SA1 EAC8 IH (16:16)
[2024-04-08 16:27] LABS: BASOPHILS PERCENT AUTO 1 % (0-2); EOSINOPHILS ABSOLUTE AUTO 0.39 K/mm3 (0.00-0.68); EOSINOPHILS PERCENT AUTO 3 % (0-6); Hematocrit 39.5 % (33.0-51.0); Hemoglobin 12.9 g/dL (11.5-16.0); IMMATURE GRAN ABSOLUTE AUTO 0.08 K/mm3 (0.00-0.10); IMMATURE GRAN PERCENT AUTO 1 % (0-1); LYMPHOCYTES ABSOLUTE AUTO 3.42 K/mm3 (0.84-5.20); LYMPHOCYTES PERCENT AUTO 28 % (21-46); MONOCYTES ABSOLUTE AUTO 0.78 K/mm3 (0.16-1.47); MONOCYTES PERCENT AUTO 6 % (4-13); Mean Corpuscular HGB 28.5 pg (26.0-34.0); Mean Corpuscular HGB Conc 32.7 g/dL (31.5-36.5); Mean Corpuscular Volume 87 fL (80-100); Mean Platelet Volume 9.5 fL (9.1-12.4); NEUTROPHILS PERCENT AUTO 61 % (41-73); Platelet Count 265 K/mm3 (150-400); RDW Coefficient Variation 14.4 % (11.7-14.2); RDW Standard Deviation 46.2 fL (35.1-46.3); Red Blood Cell Count 4.52 M/mm3 (3.80-5.20); White Blood Cell Count 12.27 K/mm3 (4.00-11.30)
[2024-04-08 16:32] LABS: Albumin, Blood 3.2 g/dL (3.4-5.0); Albumin/Globulin Ratio 0.8 (0.8-1.8); Bilirubin, Total 0.3 mg/dL (0.1-1.0); Bun/Creatinine Ratio 24.7 (12.0-20.0); Calcium, Blood 8.6 mg/dL (8.5-10.1); Creatinine, Blood 0.61 mg/dL (0.40-1.00); Potassium, Blood 3.6 mmol/L (3.5-5.5); Total Protein, Blood 7.2 g/dL (6.4-8.2)
[2024-04-08] MEDS ORDERED: Nitroglycerin 1 INCH/GM PKT TOP ONE (19:05)
[2024-04-08] MEDS ORDERED: Ondansetron HCl 2 MG / ML 2ML Vial IV ONE (19:10)
[2024-04-08] MEDS ORDERED: Morphine Sulfate 4 MG/1 ML Injection IV ONE (19:10)
[2024-04-08] MEDS ORDERED: Ondansetron HCl 2 MG / ML 2ML Vial IV PRN (22:30)
[2024-04-08] MEDS ORDERED: Nitroglycerin 0.4 MG SUBL SL PRN (22:30)
[2024-04-08] MEDS ORDERED: FentaNYL Citrate 50 MCG/ML 2 ML Injection IV PRN (22:30)
[2024-04-08] MEDS ORDERED: FLU VACC TS2024-25(6MOS UP)/PF 45 MCG/0.5 ML SYRINGE IM SCH (22:30)
[2024-04-08] MEDS ORDERED: Acetaminophen 325 MG TABLET PO PRN (22:30)
[2024-04-08] MEDS ORDERED: NS 1,000 ML IV SCH (22:30)
[2024-04-08] MEDS ORDERED: Mag Hydrox/Al Hydrox/Simeth 18 ML,Lidocaine 2% Viscous Soln 9 ML,Atropine/Scopalam/Hyos... PO PRN (22:55)
[2024-04-08] MEDS ORDERED: Enoxaparin 40 MG/0.4 ML SYR SC SCH (23:00)
[2024-04-09] MEDS ORDERED: Morphine Sulfate 4 MG/1 ML Injection IV PRN ×3 (01:20→07:40)
[2024-04-09 01:21] VITALS: BP 147/79
[2024-04-09 03:21] LABS: BASOPHILS PERCENT AUTO 1 % (0-2); EOSINOPHILS ABSOLUTE AUTO 0.48 K/mm3 (0.00-0.68); EOSINOPHILS PERCENT AUTO 4 % (0-6); Hematocrit 39.4 % (33.0-51.0); Hemoglobin 12.8 g/dL (11.5-16.0); IMMATURE GRAN ABSOLUTE AUTO 0.05 K/mm3 (0.00-0.10); IMMATURE GRAN PERCENT AUTO 0 % (0-1); LYMPHOCYTES ABSOLUTE AUTO 3.28 K/mm3 (0.84-5.20); LYMPHOCYTES PERCENT AUTO 29 % (21-46); MONOCYTES ABSOLUTE AUTO 0.77 K/mm3 (0.16-1.47); MONOCYTES PERCENT AUTO 7 % (4-13); Mean Corpuscular HGB 28.4 pg (26.0-34.0); Mean Corpuscular HGB Conc 32.5 g/dL (31.5-36.5); Mean Corpuscular Volume 88 fL (80-100); Mean Platelet Volume 9.6 fL (9.1-12.4); NEUTROPHILS ABSOLUTE AUTO 6.61 K/mm3 (1.96-9.15); NEUTROPHILS PERCENT AUTO 59 % (41-73); Platelet Count 252 K/mm3 (150-400); RDW Coefficient Variation 14.5 % (11.7-14.2); RDW Standard Deviation 46.3 fL (35.1-46.3); White Blood Cell Count 11.29 K/mm3 (4.00-11.30)
[2024-04-09 03:46] LABS: Albumin, Blood 3.3 g/dL (3.4-5.0); Albumin/Globulin Ratio 0.9 (0.8-1.8); Bilirubin, Total 0.4 mg/dL (0.1-1.0); Bun/Creatinine Ratio 24.8 (12.0-20.0); Calcium, Blood 8.7 mg/dL (8.5-10.1); Creatinine, Blood 0.6 mg/dL (0.40-1.00); Globulin, Blood 3.6 g/dL (2.2-4.0); Potassium, Blood 3.5 mmol/L (3.5-5.5); Total Protein, Blood 6.9 g/dL (6.4-8.2)
[2024-04-09 03:51] VITALS: BP 134/76
[2024-04-09] MEDS ORDERED: Cyclobenzaprine HCl 10 MG Tab PO PRN (06:25)
[2024-04-09] MEDS ORDERED: Mometasone/Formoterol MDI 100/5 mcg 13 GM INH SCH (06:45)
[2024-04-09 07:16] VITALS: BP 133/72
[2024-04-09 07:17] VITALS: BP 133/72
[2024-04-09] MEDS ORDERED: Citalopram Hydrobromide 20 MG Tab PO SCH (09:00)
[2024-04-09] MEDS ORDERED: Gabapentin 300 MG Cap PO SCH (09:00)
[2024-04-09] MEDS ORDERED: TraMADol HCl 50 MG Tab PO PRN (09:10)
[2024-04-09 10:27] LABS: U Amphetamine Screen DETECTED; U Barbituate Screen Not Detected; U Benzodiazapine Screen Not Detected; U Buprenorphine Screen Not Detected; U Cannabinoids Screen Not Detected; U Cocaine Screen Not Detected; U Methadone Screen Not Detected; U Methamphetamine Screen DETECTED; U Opiates Screen DETECTED; U Oxycodone Screen Not Detected; U Phencyclidine Screen Not Detected
[2024-04-09] MEDS ORDERED: Acetaminophen325 M1 PO (13:19)
--- NOTE | 2024-04-09 14:10 | NUR ---
PATIENT D/C'D TO HOME WITH BETTINA. DC INSTRUCTIONS AND EDUCATION DISCUSSED WITH PATIENT AND COPY PROVIDED.RX MEDICATIONS FAXED TO [facility]. PATIENT DENIES ANY FURTHER QUESTIONS OR CONCERNS. HOME HEALTH TO CONTACT PATIENT.
[2024-04-09] MEDS ORDERED: TraZODone HCl 50 MG Tab PO SCH (21:00)
== END 2024-04-09 14:12 | disposition home health service (06) ==
LOC: ER 15:11 → MEDS 15:12 → ENPENDDIS 04-09 13:00 → MEDS 04-09 14:12
PROVIDERS: Student in an Organized Health Care Education/Training Program; ADMIT Internal Medicine
DX: R07.2 Precordial pain (principal); E78.5 Hyperlipidemia, unspecified; G89.29 Other chronic pain; M54.9 Dorsalgia, unspecified; Z88.0 Allergy status to penicillin; Z88.5 Allergy status to narcotic agent; Z87.891 Personal history of nicotine dependence; Z79.899 Other long term (current) drug therapy
CPT/HCPCS: 36415; 71045; 80053; 83690; 83880; 84484; 85025; 85379; 93005; 93010; 96372-59; 96374; 96375; 96376; 99285-25; A9270; G0378; J1650; J2270; J2405; J7030

== ENCOUNTER → 2024-06-02 | Outpatient (CLI) | payer MEDICARE, OTHER ==
[~2024-06-02] MED LIST changes: +Acetaminophen325 M1 PO; +FARXIGA5 MG PO; +FLUTICASONE-SA1 EAC8 IH
[2024-06-02 19:03] LABS: Very Low Density Lipoprot Chol 23 mg/dL (6-32)
[2024-06-02 19:04] LABS: CHOL/HDL RATIO 4.2; Cholesterol 208 mg/dL (50-200); HDL Cholesterol 49 mg/dL (>39); LDL/HDL RATIO 2.8; Low Density Lipoprotein Chol 136 mg/dL (0-110); Triglycerides 117 mg/dL (30-160)
== END ==
LOC: LAB SHORT 17:47 → LAB 17:47
PROVIDERS: Family Medicine
DX: I50.32 Chronic diastolic (congestive) heart failure (principal)
CPT/HCPCS: 80061

== ENCOUNTER 2025-05-24 11:28 | Emergency (ER) | payer MEDICARE, OTHER ==
[~2025-05-24] VITALS: Ht 157.5 cm; Wt 90.7 kg
[~2025-05-24 11:28] MED LIST changes: +ASPI81CH PO; +ATOR80 PO; +BUPROPION XL150 M1 PO; +CLOP75 PO; +FARXIGA10 MG PO; +HYDPAM25 PO; +LOSA50 PO
[2025-05-24 11:55] LABS: BASOPHILS ABSOLUTE AUTO 0.06 K/mm3 (0.00-0.23); BASOPHILS PERCENT AUTO 1 % (0-2); EOSINOPHILS ABSOLUTE AUTO 0.42 K/mm3 (0.00-0.68); EOSINOPHILS PERCENT AUTO 5 % (0-6); Hematocrit 39.0 % (33.0-51.0); Hemoglobin 12.9 g/dL (11.5-16.0); IMMATURE GRAN ABSOLUTE AUTO 0.04 K/mm3 (0.00-0.10); IMMATURE GRAN PERCENT AUTO 1 % (0-1); LYMPHOCYTES ABSOLUTE AUTO 2.00 K/mm3 (0.84-5.20); LYMPHOCYTES PERCENT AUTO 24 % (21-46); MONOCYTES ABSOLUTE AUTO 0.67 K/mm3 (0.16-1.47); MONOCYTES PERCENT AUTO 8 % (4-13); Mean Corpuscular HGB Conc 33.1 g/dL (31.5-36.5); Mean Corpuscular Volume 85 fL (80-100); NEUTROPHILS ABSOLUTE AUTO 5.13 K/mm3 (1.96-9.15); NEUTROPHILS PERCENT AUTO 62 % (41-73); NRBC ABSOLUTE 0.00 K/mm3 (0.00-0.02); NRBC Auto 0.0 /100 WBC (0.0-0.2); Platelet Count 203 K/mm3 (150-400); RDW Coefficient Variation 15.1 % (11.7-14.2); RDW Standard Deviation 47.0 fL (35.1-46.3)
[2025-05-24] MEDS ORDERED: Metoclopramide HCl 5MG / ML 2ML Vial IV ONE (12:00)
[2025-05-24] MEDS ORDERED: Ipratropium/Albuterol SulF 2.5-0.5MG/3 ML Amp INH ONE (12:00)
[2025-05-24] MEDS ORDERED: Dexamethasone Sod Phos 10 MG/ML 1ML VIAL IV ONE (12:00)
[2025-05-24 12:21] LABS: Alanine Aminotransfer (ALT/SGP 33.0 U/L (12-78); Albumin, Blood 3.2 g/dL (3.4-5.0); Albumin/Globulin Ratio 0.8 (0.8-1.8); Anion Gap 9.0 mmol/L (3-11); Aspartate Aminotrans (AST/SGOT 33.0 U/L (12-37); Bilirubin, Total 0.7 mg/dL (0.1-1.0); Blood Urea Nitrogen 10.0 mg/dL (8-24); CO2, Blood 25.0 mmol/L (21-32); Calcium, Blood 8.1 mg/dL (8.5-10.1); Chloride, Blood 107.0 mmol/L (98-108); Creatinine, Blood 0.51 mg/dL (0.40-1.00); Globulin, Blood 3.9 g/dL (2.2-4.0); Glucose, Blood 109.0 mg/dL (70-99); Potassium, Blood 2.7 mmol/L (3.5-5.5); Sodium, Blood 138.0 mmol/L (136-145); Total Protein, Blood 7.1 g/dL (6.4-8.2)
[2025-05-24 12:31] LABS: Influenza A, PCR NEGATIVE (NEGATIVE); Influenza B, PCR NEGATIVE (NEGATIVE); Resp Syncytial Virus, PCR NEGATIVE (NEGATIVE)
[2025-05-24 12:59] LABS: SARS-Cov-2 (COVID-19) PCR, MMC POSITIVE (NEGATIVE)
[2025-05-24 13:29] LABS: Source, Urine Clean Catch
[2025-05-24 13:30] VITALS: BP 134/75
[2025-05-24 13:36] LABS: Bilirubin, Urine Neg (Neg); Color, Urine Yellow (P-Yellow); Glucose Qualitative, Urine 1+ (Neg); Ketones, Urine 1+ (Neg); Leukocyte Esterase, Urine 2+ (Neg); Protein, Urine 2+ (Neg); Specific Gravity, Urine 1.020 (1.003-1.022); Urobilinogen, Urine 1+ (Normal)
[2025-05-24] MEDS ORDERED: K-Dur20 MEQ PO (15:19)
== END 2025-05-24 15:33 | disposition home or self-care (01) ==
LOC: ER 11:28
PROVIDERS: Emergency Medicine
DX: U07.1 COVID-19 (principal); J44.1 Chronic obstructive pulmonary disease with (acute) exacerbation; E87.6 Hypokalemia; Z88.0 Allergy status to penicillin; Z88.5 Allergy status to narcotic agent; Z79.899 Other long term (current) drug therapy; F17.210 Nicotine dependence, cigarettes, uncomplicated
CPT/HCPCS: 71045; 80053; 81001; 83735; 83880; 84484; 85025; 87077; 87086; 87186; 87637; 93005; 93010; 96374; 96375; 99285-25; A6590; A9270; J1100; J2765

== ENCOUNTER 2025-05-26 08:01 | Emergency (ER) | payer MEDICARE, OTHER ==
[~2025-05-26] VITALS: Ht 154.9 cm; Wt 89.4 kg
[~2025-05-26 08:01] MED LIST changes: +K-Dur20 MEQ PO
[2025-05-26] MEDS ORDERED: Ipratropium/Albuterol SulF 2.5-0.5MG/3 ML Amp INH ONE (09:00)
[2025-05-26] MEDS ORDERED: Dexamethasone Sod Phos 10 MG/ML 1ML VIAL IV ONE (09:00)
[2025-05-26 09:01] LABS: Source, Urine Straight Cath
[2025-05-26 09:16] LABS: Bilirubin, Urine Neg (Neg); Color, Urine Yellow (P-Yellow); Glucose Qualitative, Urine 4+ (Neg); Ketones, Urine Neg (Neg); Leukocyte Esterase, Urine 1+ (Neg); Protein, Urine 2+ (Neg); Specific Gravity, Urine 1.015 (1.003-1.022); Urobilinogen, Urine NORM (Normal)
[2025-05-26 09:18] LABS: BASOPHILS ABSOLUTE AUTO 0.06 K/mm3 (0.00-0.23); BASOPHILS PERCENT AUTO 1 % (0-2); EOSINOPHILS ABSOLUTE AUTO 0.06 K/mm3 (0.00-0.68); EOSINOPHILS PERCENT AUTO 1 % (0-6); Hematocrit 38.4 % (33.0-51.0); Hemoglobin 12.5 g/dL (11.5-16.0); IMMATURE GRAN ABSOLUTE AUTO 0.09 K/mm3 (0.00-0.10); IMMATURE GRAN PERCENT AUTO 1 % (0-1); LYMPHOCYTES ABSOLUTE AUTO 2.96 K/mm3 (0.84-5.20); LYMPHOCYTES PERCENT AUTO 24 % (21-46); MONOCYTES ABSOLUTE AUTO 0.70 K/mm3 (0.16-1.47); MONOCYTES PERCENT AUTO 6 % (4-13); Mean Corpuscular HGB Conc 32.6 g/dL (31.5-36.5); Mean Corpuscular Volume 87 fL (80-100); NEUTROPHILS ABSOLUTE AUTO 8.36 K/mm3 (1.96-9.15); NEUTROPHILS PERCENT AUTO 68 % (41-73); NRBC ABSOLUTE 0.00 K/mm3 (0.00-0.02); NRBC Auto 0.0 /100 WBC (0.0-0.2); Platelet Count 221 K/mm3 (150-400); RDW Coefficient Variation 15.2 % (11.7-14.2); RDW Standard Deviation 48.6 fL (35.1-46.3)
[2025-05-26 09:32] LABS: Red Blood Cells, Urine 25-50 /hpf (0-2); White Blood Cells, Urine 25-50 /hpf (0-5)
[2025-05-26 09:39] LABS: Magnesium, Blood 1.5 mg/dL (1.6-2.4)
[2025-05-26] MEDS ORDERED: Ketorolac Tromethamine 15mg Vial IV ONE (09:40)
[2025-05-26 09:45] LABS: Alanine Aminotransfer (ALT/SGP 30.0 U/L (12-78); Albumin, Blood 3.7 g/dL (3.4-5.0); Albumin/Globulin Ratio 1.0 (0.8-1.8); Anion Gap 8.0 mmol/L (3-11); Aspartate Aminotrans (AST/SGOT 23.0 U/L (12-37); Bilirubin, Total 0.5 mg/dL (0.1-1.0); Blood Urea Nitrogen 13.0 mg/dL (8-24); CO2, Blood 26.0 mmol/L (21-32); Calcium, Blood 8.3 mg/dL (8.5-10.1); Chloride, Blood 107.0 mmol/L (98-108); Creatinine, Blood 0.61 mg/dL (0.40-1.00); Globulin, Blood 3.8 g/dL (2.2-4.0); Glucose, Blood 114.0 mg/dL (70-99); Potassium, Blood 2.4 mmol/L (3.5-5.5); Sodium, Blood 139.0 mmol/L (136-145); Total Protein, Blood 7.5 g/dL (6.4-8.2)
[2025-05-26] MEDS ORDERED: Magnesium Sulf 2 GM/Water 50ML 50 ML IV ONE (10:00)
[2025-05-26] MEDS ORDERED: NS 1,000 ML IV SCH (11:00)
[2025-05-26] MEDS ORDERED: POTCHL20ER PO (13:55)
[2025-05-26] MEDS ORDERED: LEVFLO500 PO (13:55)
[2025-05-26] MEDS ORDERED: Diflucan150 MG PO (15:16)
[2025-05-26 17:00] VITALS: BP 159/86
[2025-05-29 07:00] LABS: Calcium, Ionized (POC) 1.01 mmol/L (1.10-1.46); Chloride (POC) 108 mmol/L (98-108); Creatinine (POC) 0.6 mg/dL (0.6-1.0); Glucose (ISTAT POC) 207 mg/dL (70-99); Hematocrit (POC) 33.0 % (36.0-46.0); Hemoglobin (POC) 11.2 g/dL (12.0-16.0); Potassium (POC) 4.2 mmol/L (3.5-5.5); Sodium (POC) 143 mmol/L (135-148); Total CO2 (POC) 19 mmol/L (21-32)
== END 2025-05-26 17:16 | disposition home or self-care (01) ==
LOC: ER 08:01
PROVIDERS: Student in an Organized Health Care Education/Training Program
DX: U07.1 COVID-19 (principal); J44.1 Chronic obstructive pulmonary disease with (acute) exacerbation; E87.6 Hypokalemia; D72.829 Elevated white blood cell count, unspecified; Z88.5 Allergy status to narcotic agent; Z88.0 Allergy status to penicillin; E78.5 Hyperlipidemia, unspecified; J45.909 Unspecified asthma, uncomplicated; Z79.899 Other long term (current) drug therapy
CPT/HCPCS: 51701; 71046; 80047; 80053; 81001; 83735; 84484; 85014; 85025; 87077; 87086; 87186; 93005; 93010; 96365; 96366; 96375; 99285-25; A6590; A9270; J1100; J1885; J1956; J3475; J3480; J7030; J7050